=== PATIENT | male | born 1935 | race Caucasian/White ===

== ENCOUNTER 2016-08-21 11:39 | Inpatient (IN) | payer MEDICARE, SELFPAY ==
[2016-08-21] MEDS ORDERED: ACETAMINOPHEN TAB 325 MG TAB PO STA (12:02)
[2016-08-21] MEDS ORDERED: IBUPROFEN 600 MG TAB PO STA (12:02)
--- NOTE | 2016-08-21 12:21 | ED ---
Fever HPI - General Chief Complaint: Recheck/Abnormal Lab/Rx Stated Complaint: SHAKING ALL OVER, NOT ACTING NORMAL Time Seen by Provider: 08/21/16 11:51 Source: patient, family Mode of arrival: wheelchair Limitations: no limitations - History of Present Illness Initial Comments: This patient is an 80-year-old man who presents with complaint that he was feeling cold and shaking. The symptoms came on probably about 1-2 hours ago. He states that prior to that he had been feeling his usual self. The patient's is denying symptoms of infection other than a little bit of rhinorrhea. The patient denies sinus congestion or pressure, cough, sore throat. No headache or stiff neck. Patient is not having chest pain or dyspnea. No nausea, vomiting, diarrhea. No change in urination. No rash. MD Complaint: other (Chills) -: hour(s) Temperature Source: subjective Associated Symptoms: denies other symptoms, chills Treatments Prior to Arrival: none - Related Data Home Medications Medication Instructions Recorded Confirmed Allopurinol [Zyloprim] 100 mg PO QAM 08/21/16 08/21/16 Allopurinol [Zyloprim] 300 mg PO QAM 08/21/16 08/21/16 Aspirin 325 mg PO QAM 08/21/16 08/21/16 Atenolol 100 mg PO QAM 08/21/16 08/21/16 Atorvastatin [Lipitor] 10 mg PO QAM 08/21/16 08/21/16 Calcium Carbonate [Calcium] 600 mg PO TID 08/21/16 08/21/16 Cholecalciferol [Vitamin D3] 1,000 unit PO QAM 08/21/16 08/21/16 Colchicine [Colcrys] 0.6 mg PO Q1H PRN MDD 5 tablets 08/21/16 08/21/16 Hydrochlorothiazide 25 mg PO QAM 08/21/16 08/21/16 LORazepam [Ativan] 0.5 mg PO QAM 08/21/16 08/21/16 Losartan [Cozaar] 50 mg PO QAM 08/21/16 08/21/16 [place]-3 Fatty Acids/Fish Oil [Fish 2 cap PO QAM 08/21/16 08/21/16 Oil 1,000 mg Softgel] Prostate Blend By Solar[employer] (Otc) 1 tab PO BID 08/21/16 08/21/16 Prostate Health (Otc) 1 tab PO BID 08/21/16 08/21/16 Pyridoxine [Vitamin B-6] 100 mg PO QAM 08/21/16 08/21/16 Saw [place] 500 mg PO BID 08/21/16 08/21/16 Sulindac [[place]] 200 mg PO QAM 08/21/16 08/21/16 Vitamin B Complex 1 cap PO QAM 08/21/16 08/21/16 metFORMIN HCL [Glucophage] 500 mg PO BID 08/21/16 08/21/16 Allergies Allergy/AdvReac Type Severity Reaction Status Date / Time Iodinated Contrast Media - AdvReac Nausea Verified 08/21/16 13:45 Oral and Review of Systems ROS Statement: Those systems with pertinent positive or pertinent negative responses have been documented in the HPI. ROS Other: All systems not noted in ROS Statement are negative. Constitutional: Reports: chills ENT: Denies: ear pain, throat pain, congestion Respiratory: Denies: cough, dyspnea Cardiovascular: Denies: chest pain, palpitations, syncope Gastrointestinal: Denies: abdominal pain, vomiting, diarrhea Genitourinary: Denies: dysuria, hematuria Musculoskeletal: Denies: back pain Skin: Denies: rash Neurological: Denies: headache, weakness, numbness Past Medical History Past Medical History: CVA/TIA, Diabetes Mellitus, Hyperlipidemia, Hypertension History of Any Multi-Drug Resistant Organisms: None Reported Past Surgical History: Orthopedic Surgery Additional Past Surgical History / Comment(s): left knee Past Psychological History: No Psychological Hx Reported Smoking Status: Never smoker Past Alcohol Use History: None Reported Past Drug Use History: None Reported General Exam Limitations: no limitations General appearance: alert, in no apparent distress Head exam: Present: atraumatic, normocephalic Eye exam: Present: normal appearance. Absent: scleral icterus, conjunctival injection ENT exam: Present: normal oropharynx Neck exam: Present: normal inspection, full ROM. Absent: tenderness, meningismus Respiratory exam: Present: normal lung sounds bilaterally. Absent: respiratory distress, wheezes, rales, rhonchi, stridor Cardiovascular Exam: Present: normal rhythm, tachycardia, normal heart sounds. Absent: systolic murmur, diastolic murmur, rubs, gallop GI/Abdominal exam: Present: soft. Absent: distended, tenderness, guarding, rebound, mass Extremities exam: Present: normal inspection, normal capillary refill. Absent: pedal edema, calf tenderness Back exam: Present: normal inspection. Absent: CVA tenderness (R), CVA tenderness (L) Neurological exam: Present: alert, oriented X3 Skin exam: Present: warm, dry, intact, normal color. Absent: rash Course Vital Signs 08/21/16 08/21/16 08/21/16 11:40 12:18 13:56 Temperature 104.4 F H 103.3 F H 100.4 F H Pulse Rate 109 H 112 H 100 Respiratory 18 20 22 Rate Blood Pressure 136/70 96/63 89/57 O2 Sat by Pulse 97 95 97 Oximetry 08/21/16 14:26 Temperature Pulse Rate 96 Respiratory 22 Rate Blood Pressure 98/53 O2 Sat by Pulse 96 Oximetry Medical Decision Making - Medical Decision Making Patient is an 80-year-old man presenting with fever. There is no obvious source of infection and workup. The patient is having some hematuria and there is a urine culture pending. Case discussed with Dr. Riggins, covering for Dr. Puentes. He'll admit the patient with cultures pending and one dose of Levaquin. IV fluids for the hypotension which developed after the fever resolved - Lab Data Result diagrams: 08/21/16 12:07 08/21/16 12:07 Lab Results 08/21/16 08/21/16 08/21/16 Range/Units 12:07 12:07 12:07 WBC 18.8 H (3.8-10.6) k/uL RBC 4.42 (4.30-5.90) m/uL Hgb 14.2 (13.0-17.5) gm/dL Hct 40.4 (39.0-53.0) % MCV 91.5 (80.0-100.0) fL MCH 32.1 (25.0-35.0) pg MCHC 35.1 (31.0-37.0) g/dL RDW 14.5 (11.5-15.5) % Plt Count 181 (150-450) k/uL Neutrophils % 88 % Lymphocytes % 7 % Monocytes % 3 % Eosinophils % 1 % Basophils % 0 % Neutrophils # 16.5 H (1.3-7.7) k/uL Lymphocytes # 1.2 (1.0-4.8) k/uL Monocytes # 0.6 (0-1.0) k/uL Eosinophils # 0.3 (0-0.7) k/uL Basophils # 0.1 (0-0.2) k/uL Sodium 139 (137-145) mmol/L Potassium 3.9 (3.5-5.1) mmol/L Chloride 102 (98-107) mmol/L Carbon Dioxide 23 (22-30) mmol/L Anion Gap 14 mmol/L BUN 15 (9-20) mg/dL Creatinine 0.89 (0.66-1.25) mg/dL Est GFR (MDRD) Af Amer >60 (>60 ml/min/1.73 sqM) Est GFR (MDRD) Non-Af >60 (>60 ml/min/1.73 sqM) Glucose 152 H (74-99) mg/dL Plasma Lactic Acid Jasvir (0.7-2.0) mmol/L Calcium 9.4 (8.4-10.2) mg/dL Total Bilirubin 1.6 H (0.2-1.3) mg/dL AST 25 (17-59) U/L ALT 37 (21-72) U/L Alkaline Phosphatase 42 (38-126) U/L Total Protein 6.8 (6.3-8.2) g/dL Albumin 3.9 (3.5-5.0) g/dL Urine Color Urine Appearance (Clear) Urine pH (5.0-8.0) Ur Specific [place] (1.001-1.035) Urine Protein (Negative) Urine Glucose (UA) (Negative) Urine Ketones (Negative) Urine Blood (Negative) Urine Nitrate (Negative) Urine Bilirubin (Negative) Urine Urobilinogen (<2.0) mg/dL Ur Leukocyte Esterase (Negative) Urine RBC (0-5) /hpf Urine WBC (0-5) /hpf Ur Squamous Epith Cells (0-4) /hpf Urine Mucus (None) /hpf Influenza Type A RNA Not Detected (Not Detectd) Influenza Type B (PCR) Not Detected (Not Detectd) 08/21/16 08/21/16 Range/Units 12:09 13:59 WBC (3.8-10.6) k/uL RBC (4.30-5.90) m/uL Hgb (13.0-17.5) gm/dL Hct (39.0-53.0) % MCV (80.0-100.0) fL MCH (25.0-35.0) pg MCHC (31.0-37.0) g/dL RDW (11.5-15.5) % Plt Count (150-450) k/uL Neutrophils % % Lymphocytes % % Monocytes % % Eosinophils % % Basophils % % Neutrophils # (1.3-7.7) k/uL Lymphocytes # (1.0-4.8) k/uL Monocytes # (0-1.0) k/uL Eosinophils # (0-0.7) k/uL Basophils # (0-0.2) k/uL Sodium (137-145) mmol/L Potassium (3.5-5.1) mmol/L Chloride (98-107) mmol/L Carbon Dioxide (22-30) mmol/L Anion Gap mmol/L BUN (9-20) mg/dL Creatinine (0.66-1.25) mg/dL Est GFR (MDRD) Af Amer (>60 ml/min/1.73 sqM) Est GFR (MDRD) Non-Af (>60 ml/min/1.73 sqM) Glucose (74-99) mg/dL Plasma Lactic Acid Jasvir 1.9 (0.7-2.0) mmol/L Calcium (8.4-10.2) mg/dL Total Bilirubin (0.2-1.3) mg/dL AST (17-59) U/L ALT (21-72) U/L Alkaline Phosphatase (38-126) U/L Total Protein (6.3-8.2) g/dL Albumin (3.5-5.0) g/dL Urine Color Yellow Urine Appearance Clear (Clear) Urine pH 5.5 (5.0-8.0) Ur Specific [place] 1.014 (1.001-1.035) Urine Protein Trace H (Negative) Urine Glucose (UA) Negative (Negative) Urine Ketones Negative (Negative) Urine Blood Moderate H (Negative) Urine Nitrate Negative (Negative) Urine Bilirubin Negative (Negative) Urine Urobilinogen <2.0 (<2.0) mg/dL Ur Leukocyte Esterase Negative (Negative) Urine RBC 103 H (0-5) /hpf Urine WBC 2 (0-5) /hpf Ur Squamous Epith Cells <1 (0-4) /hpf Urine Mucus Rare H (None) /hpf Influenza Type A RNA (Not Detectd) Influenza Type B (PCR) (Not Detectd) Disposition Clinical Impression: Fever, Hypotension Disposition: ADMITTED IP TO THIS HOSP Condition: Fair Referrals: Izaiah Puentes MD [Primary Care Provider] - 1-2 days
[2016-08-21 12:22] LABS: Basophils # (A) 0.1 k/uL (0-0.2); Basophils % (A) 0 %; CH 32.7; CHCM 36.1; Eosinophils # (A) 0.3 k/uL (0-0.7); Eosinophils % (A) 1 %; HCT 40.4 % (39.0-53.0); HDW 3.31; HGB 14.2 gm/dL (13.0-17.5); Luc % (Auto) 1; Lymphocytes # (A) 1.2 k/uL (1.0-4.8); Lymphocytes % (A) 7 %; MCH 32.1 pg (25.0-35.0); MCHC 35.1 g/dL (31.0-37.0); MCV 91.5 fL (80.0-100.0); Mean Platelet Volume 7.6; Monocytes # (A) 0.6 k/uL (0-1.0); Monocytes % (A) 3 %; Neutrophils # (A) 16.5 k/uL (1.3-7.7); Neutrophils % (A) 88 %; RBC 4.42 m/uL (4.30-5.90); RDW 14.5 % (11.5-15.5); WBC 18.8 k/uL (3.8-10.6); WBC (Perox) 19.09
[2016-08-21 12:29] LABS: ALT 37 U/L (21-72); AST 25 U/L (17-59); Alkaline Phosphatase 42 U/L (38-126); Anion Gap 14 mmol/L; Blood Urea Nitrogen 15 mg/dL (9-20); Calcium 9.4 mg/dL (8.4-10.2); Carbon Dioxide 23 mmol/L (22-30); Chloride 102 mmol/L (98-107); Glucose 152 mg/dL (74-99); Non-African American GFR(MDRD) >60 (>60 ml/min/1.73 sqM); Potassium 3.9 mmol/L (3.5-5.1); Sodium 139 mmol/L (137-145); Total Bilirubin 1.6 mg/dL (0.2-1.3); Total Protein 6.8 g/dL (6.3-8.2)
[2016-08-21 13:22] LABS: Appearance,Urine Clear (Clear); Bilirubin,Urine Negative (Negative); Glucose,Urine (UA) Negative (Negative); Ketones,Urine Negative (Negative); Leukocyte Esterase,Urine Negative (Negative); Mucus,Urine Rare /hpf; Nitrite,Urine Negative (Negative); PH, Urine 5.5 (5.0-8.0); Particle Count 1261; Protein,Urine Trace (Negative); RBC,Urine 103 /hpf (0-5); Specific Gravity,Urine 1.014 (1.001-1.035); Squamous Epithelial Cell,Urine <1 /hpf (0-4); UA Billing (MACRO vs. MICRO) MICRO; Urobilinogen,Urine <2.0 mg/dL (<2.0); WBC,Urine 2 /hpf (0-5)
[2016-08-21] MEDS ORDERED: SODIUM CHLORIDE 0.9% 1,000 ML IV ONE (14:04)
[2016-08-21] MEDS ORDERED: LEVOFLOXACIN 750MG-D5W PMX 750 MG in DEXTROSE/WATER 1 150ML.BAG IVPB STA (14:08)
[2016-08-21] MEDS ORDERED: ACETAMINOPHEN TAB 325 MG TAB PO PRN (14:25)
[2016-08-21] MEDS ORDERED: NALOXONE 0.4 MG/ML 1 ML VIAL IV PRN (14:25)
[2016-08-21] MEDS: SODIUM CHLORIDE 0.9% 1,000 ML IV SCH ×2 (14:28→21:33)
--- NOTE | 2016-08-21 14:40 | XR ---
EXAMINATION TYPE: XR chest 2V DATE OF EXAM: 08/21/2016 12:30 PM COMPARISON: NONE HISTORY: Fever TECHNIQUE: Frontal and lateral views of the chest are obtained. FINDINGS: There is no focal air space opacity, pleural effusion, or pneumothorax seen. The cardiac silhouette size is within normal limits. There is increased AP diameter of the chest. Aorta is dense . The osseous structures are intact. IMPRESSION: No acute cardiopulmonary process.
[2016-08-21 17:32] LABS: Glucose,Whole Blood 118 mg/dL (75-99)
[2016-08-21 19:40] VITALS: BMI 29.2
[2016-08-21 20:18] LABS: Glucose,Whole Blood 137 mg/dL (75-99)
[2016-08-21] MEDS: CALCIUM CARBONATE 500 MG CHEWABLE PO SCH ×2 (21:31)
[2016-08-21] MEDS: metFORMIN 500 MG TAB PO SCH (21:31)
[2016-08-21] MEDS: FAMOTIDINE 20 MG TAB PO SCH (21:31)
--- NOTE | 2016-08-21 22:52 | HP ---
DATE OF ADMISSION: 08/21/2016 Mr. Jha is an 80-year-old male with known history of hypertension, diabetes mellitus, [id number], hyperlipidemia, and gout, came to the hospital with complaints of feeling very cold and shaky. Patient does have this chills, shaking since morning about 1 to 2 hours prior to admission to the hospital and has not been feeling as his usual self. Otherwise, the patient denies any complaints of chest pain. No short of breath and the patient does have runny nose, but not currently. Denies any sinus congestion. No sick contacts at home. Patient did have a loose bowel movement prior to this episode of shaking. Otherwise, patient denied any complaints of headache, dizziness or lightheadedness. No neck stiffness. No altered mental status. No leg swelling. Denied any recent illnesses. Chest x-ray showed no acute ( ) process and UA is not suggestive of infection. Urine culture and blood cultures are pending at this time. Otherwise, patient denied any complaints now. REVIEW OF SYSTEMS: CONSTITUTIONAL: Patient does have fever and chills and malaise. No weakness. CARDIOVASCULAR: No chest pain or shortness of breath. RESPIRATORY: No cough or sputum production. No short of breath. Abdomen: No nausea or vomiting. Patient did have one episode of diarrhea prior to shaking. [employer]EL[employer]: No headache or dizziness or lightheadedness. No numbness or tingling. GENITOURINARY: Negative. No dysuria. No hematuria. ENDOCRINE: Negative. PSYCHIATRIC: Negative. SKIN: Negative. MUSCULOSKELETAL: Negative. All other fourteen-point review of systems negative except as above. Past medical history includes history of cerebrovascular accident/transient ischemic attack, no residual weakness diabetes mellitus type II, [id number], gouty arthritis and hyperlipidemia, hypertension, osteoarthritis of multiple joints. PAST SURGICAL HISTORY: Left knee total arthroplasty. SOCIAL HISTORY: Patient never a smoker. Denied any alcohol use. Denied any drugs or IVDU. FAMILY HISTORY: Denied any history of hypertension or diabetes mellitus in the family. ALLERGIES: IODINATED CONTRAST MEDIA. Home medication include: 1. Zyloprim. 2. Aspirin. 3. Atenolol. 4. Lipitor. 5. Calcium carbonate. 6. Vitamin D3. 7. Colchicine. 8. Hydrochlorothiazide. 9. Losartan. 10. [place]-3 fatty acids. 11. Prostate blend by ( ). 12. Prostate health. 13. ( ), 14. Saw [place]. 15. Sulindac. 16. Vitamin B complex. 17. Metformin. PHYSICAL EXAMINATION: A 80-year-old male lying in the bed. Awake, alert, oriented, x3 appears to be in no distress. VITALS: Blood pressure is 136/70. Pulse is 109, respirations 18, temperature 104.4, pulse ox 97% on room air. HEENT: Atraumatic, normocephalic. Neck is supple. No JVD. CVS: S1, S2 heard. No murmurs, no gallop. LUNGS: Bilateral air entry is present. No wheezing. No crackles. Nonlabored breathing. ABDOMEN: Soft, nontender. Bowel sounds are present. [employer]EL[employer]: Awake, alert, oriented, x3. No focal neurologic deficits. Cranial nerves grossly intact. EXTREMITIES: No edema. Pulses palpable bilaterally. Musculoskeletal: Patient does have left knee ( ) is present. Left knee pain which is chronic. No acute issues. No tenderness. No joint swelling. PSYCHIATRIC: Cooperative. LABORATORY DATA: WBC 18.8, hemoglobin 14.2, platelets 181. Neutrophils 16.5, ( ) 16.5, blood sugar is 152, total bilirubin is 1.6. Lactic acid 1.9, liver enzymes is within normal limits. UA showed trace protein, moderate blood, and WBC 2 and less than ( ), influenza A and B PCR not detected. CHEST X-RAY: No acute cardiopulmonary process. Blood culture, urine culture are pending at this time. IMPRESSION: 1. Systemic inflammatory response syndrome with no definite evidence of infection. 2. Possible acute viral illness. 3. Significant Leukocytosis high temperature and tachycardic on admission. 4. Hypertension. Blood pressure is controlled. 5. Diabetes type 2, [id number]. 6. Hyperlipidemia. 7. Gouty arthritis, no signs of flare. 8. Degenerative joint disease. 9. Chronic left knee pain. DISCUSSION AND PLAN: Patient will be continued on IV fluids. Patient was given a dose of levofloxacin in the ER and we will follow up on the urine culture and blood cultures and repeat labs in a.m. Currently the patient denied any complaints of fever now. Tachycardia improved now. Will continue with IV fluids. No definite source of infection has been noted so far. Will continue to follow closely. Further recommendations based on the clinical course. MTDD
[2016-08-22 06:35] LABS: Basophils % (A) 0 %; CH 32.3; CHCM 34.6; Eosinophils # (A) 0.1 k/uL (0-0.7); Eosinophils % (A) 1 %; HCT 35.1 % (39.0-53.0); HDW 3.22; HGB 11.9 gm/dL (13.0-17.5); Luc # (Auto) 0.14; Luc % (Auto) 1; Lymphocytes # (A) 1.1 k/uL (1.0-4.8); Lymphocytes % (A) 8 %; MCH 31.9 pg (25.0-35.0); MCV 93.9 fL (80.0-100.0); Mean Platelet Volume 7.1; Monocytes # (A) 0.4 k/uL (0-1.0); Monocytes % (A) 3 %; Neutrophils # (A) 11.7 k/uL (1.3-7.7); Neutrophils % (A) 87 %; RBC 3.74 m/uL (4.30-5.90); RDW 14.7 % (11.5-15.5); WBC 13.5 k/uL (3.8-10.6)
[2016-08-22 06:46] LABS: Glucose,Whole Blood 114 mg/dL (75-99)
[2016-08-22 06:47] LABS: Anion Gap 8 mmol/L; Blood Urea Nitrogen 14 mg/dL (9-20); Carbon Dioxide 24 mmol/L (22-30); Chloride 106 mmol/L (98-107); Glucose 113 mg/dL (74-99); Non-African American GFR(MDRD) >60 (>60 ml/min/1.73 sqM); Potassium 3.7 mmol/L (3.5-5.1); Sodium 138 mmol/L (137-145)
[2016-08-22] MEDS ORDERED: IV VANCOMYCIN PER PHARMACY 1 EACH MISC MISCELLANE PRN (07:05)
[2016-08-22 08:17] LABS: Hemoglobin A1C 6.2 % (4.2-6.1)
[2016-08-22] MEDS: VANCOMYCIN 1,500 MG in SODIUM CHLORIDE 0.9% 250 ML IVPB SCH (08:17)
[2016-08-22] MEDS: metFORMIN 500 MG TAB PO SCH ×2 (08:17→17:18)
[2016-08-22] MEDS: FAMOTIDINE 20 MG TAB PO SCH ×2 (08:17→21:06)
[2016-08-22] MEDS: CALCIUM CARBONATE 500 MG CHEWABLE PO SCH ×3 (08:17→21:06)
[2016-08-22] MEDS ORDERED: HYDROCHLOROTHIAZIDE 25 MG TAB PO SCH (09:00)
[2016-08-22] MEDS ORDERED: NON-FORMULARY DRUG (Omega-3 Fatty Acids/Fish Oil [Fish Oil 1,000 Mg Softgel] 2 CAP) PO SCH (09:00)
[2016-08-22] MEDS: PYRIDOXINE 50 MG TAB PO SCH (10:02)
[2016-08-22] MEDS: LORazepam 0.5 MG TAB PO SCH (10:02)
[2016-08-22] MEDS: B COMPLEX-VIT C-VIT E-ZINC 1 EACH TAB PO SCH (10:03)
[2016-08-22] MEDS: CHOLECALCIFEROL 1,000 UNIT TAB PO SCH (10:03)
[2016-08-22] MEDS: ATORVASTATIN 10 MG TAB PO SCH (10:03)
[2016-08-22] MEDS: ALLOPURINOL 300 MG TAB PO SCH (10:03)
[2016-08-22] MEDS: ASPIRIN 325 MG TAB PO SCH (10:03)
[2016-08-22] MEDS: ALLOPURINOL 100 MG TAB PO SCH (10:56)
[2016-08-22 11:49] LABS: Glucose,Whole Blood 130 mg/dL (75-99)
[2016-08-22] MEDS: SODIUM CHLORIDE 0.9% 1,000 ML IV SCH ×2 (15:18→18:10)
[2016-08-22 16:18] LABS: Appearance,Urine Clear (Clear); Bilirubin,Urine Negative (Negative); Glucose,Urine (UA) Negative (Negative); Ketones,Urine Negative (Negative); Leukocyte Esterase,Urine Negative (Negative); Nitrite,Urine Negative (Negative); Particle Count 580; Protein,Urine Negative (Negative); RBC,Urine 86 /hpf (0-5); Specific Gravity,Urine 1.012 (1.001-1.035); UA Billing (MACRO vs. MICRO) MICRO; Urobilinogen,Urine <2.0 mg/dL (<2.0); WBC,Urine 2 /hpf (0-5)
[2016-08-22 17:03] LABS: Glucose,Whole Blood 133 mg/dL (75-99)
[2016-08-22] MEDS: LOSARTAN 50 MG TAB PO SCH (17:19)
[2016-08-22] MEDS: ATENOLOL 50 MG TAB PO SCH (17:19)
--- NOTE | 2016-08-22 17:32 | CONS ---
DATE OF CONSULTATION: 08/22/2016 Reason for consultation is bacteremia. HISTORY OF PRESENT ILLNESS: The patient is an 80-year-old male was brought into the [facility] with history of chief complaints of rigors and chills. Patient said that yesterday morning when he woke up he was doing fine, around about 10:30 when he was in the bed he started having some sudden rigors and chills. The patient said he went back to his place and lied down and had uncontrollable shaking and chills. The patient denies any significant headache or URI symptoms. Patient denies having any chest pain or shortness of breath or cough. No abdominal pain. He had about 3 loose stools prior to this episode of shaking, some difficulty in urination but no burning or frequency. Patient does have history of left knee replacement about 20 years ago and the need to be replaced; however, because of comorbidity has been off; however, the patient denies having any worsening pain in left knee area and it is not swollen or red. Patient denies having any joint swelling other than the knee and no redness. Patient did have a dental cleaning about 2 weeks ago which he gets routinely every 6 months. Does not take any antibiotics prior to be these clinical procedure and currently no symptoms referable to his oral cavity. REVIEW OF SYSTEMS: CONSTITUTIONAL: Positive for weakness along with the rigors and chills. EYES: No complaint. END: No complaint. RESPIRATORY: No complaint. CARDIOVASCULAR: No complaint. GENITOURINARY: As per HPI. GASTROINTESTINAL: As per HPI. MUSCULOSKELETAL: No complaint. INTEGUMENTARY: No complaint. PSYCHOLOGICAL: No complaint. ENDOCRINE: No complaint. NEUROLOGIC: No complaint. PAST MEDICAL HISTORY: Hypertension, hyperlipidemia, diabetes mellitus, CVA, TIA, arthritis. PAST SURGICAL HISTORY: Left knee replacement. SOCIAL HISTORY: No history of smoking, denied any drug use. , lives with his . FAMILY HISTORY: No pertinent findings. Allergies to IODINATED CONTRAST DYE. Medications include the patient is currently on Tylenol, Zyloprim, aspirin, Tenormin, Lipitor, TUMS and vitamin E, Pepcid, Ativan, Cozaar, Glucophage, Narcan, vitamin D6, vancomycin 1500 q.16 hours. On examination, the blood pressure is 110/65 with a pulse of 76, temperature of 98.2 with a T-max 103.3. General description is an elderly male, lying in bed in no distress. No tachypnea or accessory muscle of respiration use. HEENT examination shows no pallor. No scleral icterus. Oral mucous membrane is dry. NECK: Trachea central. There is no thyromegaly. The lungs unlabored breathing. Clear to auscultation anteriorly. No wheeze or crackle. HEART: S1, S2, regular rate and rhythm. Abdomen is soft, no tenderness. No guarding or rigidity. EXTREMITIES: No edema of the feet. Examination of the left knee, no swelling or redness was noticed, no evidence of any cellulitis. Examination of the oral cavity, no bad dentition was noticed or any evidence of gingivitis. NEUROLOGICAL: The patient is awake, alert, oriented x3. Mood and affect is normal. LABS: Hemoglobin is 11.9, white count of 13.4. Admission white count was 18.8 with a BUN of 14, creatinine 0.96. Electrolytes have been normal. Urine did show some evidence of hematuria but no significant pyuria. Influenza PCR has been negative. DIAGNOSTIC IMPRESSION AND PLAN: Patient with gram-positive bacteremia in a patient with no clear focus of infection. However, the patient did have recent dental work up, though no loud murmur was noticed that could be one of the etiologies. The patient also noticed to have some hematuria with a question of possible urinary stone However, patient did not have significant urinary symptoms. Patient did have a chronic problem with his left knee but no evidence of any cellulitis was noticed. PLAN: 1. We will repeat blood cultures x2 to make sure no evidence of any persistent bacteremia. 2. Repeat the UA and the culture. If evidence of any persistent hematuria will be obtaining a CT of abdomen and pelvis. 3. Vancomycin, pharmacy to dose with a target trough of 15. 4. Will follow up on the clinical condition and cultures to further adjust the medication if needed. Thank you for this consultation. Will follow this patient along with you. FIGUEROA
[2016-08-22 21:51] LABS: Glucose,Whole Blood 122 mg/dL (75-99)
[2016-08-23] MEDS: VANCOMYCIN 1,500 MG in SODIUM CHLORIDE 0.9% 250 ML IVPB SCH (00:02)
[2016-08-23] MEDS: SODIUM CHLORIDE 0.9% 1,000 ML IV SCH ×3 (00:03→15:22)
[2016-08-23 07:10] LABS: Glucose,Whole Blood 115 mg/dL (75-99)
[2016-08-23] MEDS: ALLOPURINOL 100 MG TAB PO SCH (07:45)
[2016-08-23] MEDS: ALLOPURINOL 300 MG TAB PO SCH (07:45)
[2016-08-23] MEDS: metFORMIN 500 MG TAB PO SCH ×2 (07:45→17:13)
[2016-08-23] MEDS: ASPIRIN 325 MG TAB PO SCH (07:45)
[2016-08-23] MEDS: ATENOLOL 50 MG TAB PO SCH (07:46)
[2016-08-23] MEDS: ATORVASTATIN 10 MG TAB PO SCH (07:46)
[2016-08-23] MEDS: CALCIUM CARBONATE 500 MG CHEWABLE PO SCH ×3 (07:46→21:02)
[2016-08-23] MEDS: B COMPLEX-VIT C-VIT E-ZINC 1 EACH TAB PO SCH (07:46)
[2016-08-23] MEDS: PYRIDOXINE 50 MG TAB PO SCH (07:47)
[2016-08-23] MEDS: LOSARTAN 50 MG TAB PO SCH (07:47)
[2016-08-23] MEDS: FAMOTIDINE 20 MG TAB PO SCH ×2 (07:47→21:02)
[2016-08-23] MEDS: LORazepam 0.5 MG TAB PO SCH (07:49)
[2016-08-23] MEDS: ceFAZolin 2 GM in SODIUM CHLORIDE 0.9% 100 ML IVPB SCH ×2 (10:26→17:13)
--- NOTE | 2016-08-23 12:02 | PN ---
DATE OF SERVICE: 08/22/2016 Mr. Jha is an 80-year-old male with known history of hypertension, rey-qmswzvr-mlmehurhs diabetes mellitus and hyperlipidemia and history of gout, came to the hospital with complaints of shakiness and chills. Patient was found to have leukocytosis and fever on admission. Febrile illness, fever has been resolved now but otherwise, patient leukocytosis is also improving. Blood cultures grew gram positive cocci and vancomycin has been started. Otherwise currently patient is symptomatically much improved today. No complaints of chest pain. No headache or dizziness. No tiredness or weakness. Repeat blood cultures have been ordered. If the blood cultures are persistently positive, we will get 2-D echo as well. Otherwise, the patient denied any complaints of dysuria or hematuria now. REVIEW OF SYSTEMS: CONSTITUTIONAL: No fever. No chills. RESPIRATORY: No cough or sputum production. CARDIOVASCULAR: No chest pain or short of breath. ABDOMEN: No nausea or vomiting, abdominal pain. GENITOURINARY: Negative. ENDOCRINE: Negative. PSYCHIATRIC: Negative. SKIN: Negative. All other 14 point review of systems are negative except as above. CURRENT MEDICATIONS: Reviewed. Include: 1. Tylenol. 2. Zyloprim. 3. Aspirin. 4. Tenormin. 5. Lipitor. 6. TUMS. 7. Vitamin D3. 8. Pepcid. 9. Ativan. 10. Cozaar. 11. Narcan. 12. Vitamin B6. 13. Vancomycin. 14. Vitamin B complex. PHYSICAL EXAMINATION: An 80-year-old male lying in bed comfortably, awake, alert, oriented, x3, appears to be in no apparent distress. VITALS: Blood pressure is 110/65, pulse is a 76, respirations 16, temp afebrile. Pulse ox 93% on room air. HEENT: Atraumatic, normocephalic. Neck is supple. No JVD. CVS: S1, S2 heard. No murmurs, no gallop, no rub. LUNGS: Bilateral air entry is present. No wheezing. No crackles. ABDOMEN: Soft, nontender, bowel sounds present. CENTRAL NERVOUS SYSTEM: Awake, alert and oriented times three. No focal deficits. EXTREMITIES: No edema. Pulses palpable bilaterally. No clubbing or cyanosis. PSYCHIATRIC: Cooperative. LABORATORY DATA: WBC 13.5, hemoglobin 11.9, platelets 126, sodium 138, potassium 3.7, chloride 106, bicarb is 24, BUN 14, creatinine 0.96, calcium 8.0, HbA1C 6.2. IMPRESSION: 1. Gram-positive cocci bacteremia. 2. Systemic inflammatory response syndrome/sepsis secondary to above. 3. Microscopic hematuria. 4. Leukocytosis and fever, improving, leukocytosis improved and fever has resolved. 5. Diabetes mellitus type 2. HbA1C 6.2. 6. Hypertension. 7. Hyperlipidemia. 8. History of gout. 9. Degenerative joint disease. 10. Chronic left knee pain. DISCUSSION AND PLAN: Patient will be continued on IV hydration and also repeat blood cultures were ordered. Will consult infectious disease for further evaluation and follow up on the final culture report. The patient will be started on vancomycin IV. Further recommendations based on clinical course. Prognosis guarded.
[2016-08-23 12:25] LABS: Glucose,Whole Blood 98 mg/dL (75-99)
[2016-08-23] MEDS: CLINDAMYCIN 600 MG in DEXTROSE 5% IN WATER 50 ML IVPB SCH ×4 (15:23→23:29)
[2016-08-23 16:49] LABS: Glucose,Whole Blood 101 mg/dL (75-99)
[2016-08-23 20:29] LABS: Glucose,Whole Blood 110 mg/dL (75-99)
[2016-08-24] MEDS: ceFAZolin 2 GM in SODIUM CHLORIDE 0.9% 100 ML IVPB SCH ×3 (01:51→17:13)
[2016-08-24] MEDS: SODIUM CHLORIDE 0.9% 1,000 ML IV SCH ×2 (03:21→13:18)
[2016-08-24 06:52] LABS: Glucose,Whole Blood 120 mg/dL (75-99)
[2016-08-24] MEDS: CLINDAMYCIN 600 MG in DEXTROSE 5% IN WATER 50 ML IVPB SCH ×2 (08:08)
[2016-08-24] MEDS: B COMPLEX-VIT C-VIT E-ZINC 1 EACH TAB PO SCH (08:09)
[2016-08-24] MEDS: ATENOLOL 50 MG TAB PO SCH (08:09)
[2016-08-24] MEDS: ATORVASTATIN 10 MG TAB PO SCH (08:09)
[2016-08-24] MEDS: metFORMIN 500 MG TAB PO SCH ×2 (08:09→17:13)
[2016-08-24] MEDS: ASPIRIN 325 MG TAB PO SCH (08:09)
[2016-08-24] MEDS: ALLOPURINOL 100 MG TAB PO SCH (08:09)
[2016-08-24] MEDS: CALCIUM CARBONATE 500 MG CHEWABLE PO SCH ×3 (08:10→20:58)
[2016-08-24] MEDS: LOSARTAN 50 MG TAB PO SCH (08:10)
[2016-08-24] MEDS: CHOLECALCIFEROL 1,000 UNIT TAB PO SCH (08:10)
[2016-08-24] MEDS: PYRIDOXINE 50 MG TAB PO SCH (08:10)
[2016-08-24] MEDS: FAMOTIDINE 20 MG TAB PO SCH ×2 (08:10→20:58)
[2016-08-24] MEDS: LORazepam 0.5 MG TAB PO SCH (08:18)
[2016-08-24 08:49] LABS: Basophils # (A) 0.1 k/uL (0-0.2); Basophils % (A) 1 %; CH 32.1; CHCM 34.6; Eosinophils # (A) 0.4 k/uL (0-0.7); Eosinophils % (A) 5 %; HCT 37.3 % (39.0-53.0); HDW 3.35; HGB 12.4 gm/dL (13.0-17.5); Luc # (Auto) 0.19; Luc % (Auto) 3; Lymphocytes # (A) 1.7 k/uL (1.0-4.8); Lymphocytes % (A) 23 %; MCH 31.1 pg (25.0-35.0); MCHC 33.3 g/dL (31.0-37.0); MCV 93.6 fL (80.0-100.0); Mean Platelet Volume 6.9; Monocytes # (A) 0.3 k/uL (0-1.0); Monocytes % (A) 4 %; Neutrophils # (A) 4.8 k/uL (1.3-7.7); Neutrophils % (A) 65 %; RBC 3.99 m/uL (4.30-5.90); RDW 14.5 % (11.5-15.5); WBC 7.4 k/uL (3.8-10.6); WBC (Perox) 8.12
[2016-08-24 09:35] LABS: Anion Gap 11 mmol/L; Blood Urea Nitrogen 15 mg/dL (9-20); Calcium 8.5 mg/dL (8.4-10.2); Carbon Dioxide 22 mmol/L (22-30); Chloride 108 mmol/L (98-107); Glucose 132 mg/dL (74-99); Non-African American GFR(MDRD) >60 (>60 ml/min/1.73 sqM); Potassium 3.9 mmol/L (3.5-5.1); Sodium 141 mmol/L (137-145)
--- NOTE | 2016-08-24 09:50 | PN ---
DATE OF SERVICE: 08/23/2016 Reason for follow up is left lower extremity cellulitis and strep bacteremia. INTERVAL HISTORY: The patient overall fever pattern has improved. He has been breathing comfortably. Denies significant chest pain, shortness of breath. No cough or abdominal pain. No pain in the left knee area, but did have some swelling and redness in the left lower leg. On examination, blood pressure is 114/57, pulse of 68, temperature 97. He is 97% on room air. General description is an elderly male, lying in bed in no distress. RESPIRATORY SYSTEM: Unlabored breathing. Clear to auscultation anteriorly. HEART: S1, S2 with regular rate and rhythm. ABDOMEN: Soft, no tenderness. Left leg with swelling and redness, slightly warm to touch. Knee seems to be normal with no swelling or redness. LABS: No new labs have been obtained today. Blood culture with group B streptococcus. DIAGNOSTIC IMPRESSION AND PLAN: Patient with Streptococcus agalactiae bacteremia, source likely left lower extremity cellulitis. Antibiotics has been adjusted to cefazolin and Clinda. Will evaluate the patient tomorrow. Continue supportive care. [facility]
[2016-08-24] MEDS: ALLOPURINOL 300 MG TAB PO SCH (10:24)
--- NOTE | 2016-08-24 11:18 | P.PN ---
Subjective Patient sitting at side of bed states some improvement continues with some weakness. Noted mild erythema to left lower leg Objective - Vital Signs Vital signs: Vital Signs Temp 97.0 F L 08/24/16 07:00 Pulse 62 08/24/16 07:00 Resp 18 08/24/16 07:00 BP 120/78 08/24/16 07:00 Pulse Ox 97 08/24/16 07:00 Intake & Output 08/23/16 08/24/16 08/24/16 18:59 06:59 18:59 Other: Voiding Method Toilet # Voids 2 2 - Constitutional General appearance: Present: obese - EENT Eyes: Present: PERRLA Ears: bilateral: normal - Neck Neck: Present: normal ROM - Respiratory Respiratory: bilateral: CTA - Cardiovascular Rhythm: regular - Gastrointestinal General gastrointestinal: Present: soft - Integumentary Integumentary Comment(s): Mild erythema left lower extremity Integumentary: Present: normal - Neurologic Neurologic: Present: CNII-XII intact - Musculoskeletal Musculoskeletal: Present: generalized weakness - Psychiatric Psychiatric: Present: A&O x's 3, appropriate affect, intact judgment & insight - Labs CBC & Chem 7: 08/24/16 08:03 08/24/16 08:03 Labs: Abnormal Lab Results - Last 24 Hours (Table) 08/23/16 08/23/16 08/24/16 Range/Units 16:47 20:27 06:50 RBC (4.30-5.90) m/uL Hgb (13.0-17.5) gm/dL Hct (39.0-53.0) % Plt Count (150-450) k/uL Chloride (98-107) mmol/L Glucose (74-99) mg/dL POC Glucose (mg/dL) 101 H 110 H 120 H (75-99) mg/dL 08/24/16 08/24/16 Range/Units 08:03 08:03 RBC 3.99 L (4.30-5.90) m/uL Hgb 12.4 L (13.0-17.5) gm/dL Hct 37.3 L (39.0-53.0) % Plt Count 147 L (150-450) k/uL Chloride 108 H (98-107) mmol/L Glucose 132 H (74-99) mg/dL POC Glucose (mg/dL) (75-99) mg/dL Microbiology - Last 24 Hours (Table) 08/22/16 15:45 Urine Culture - Final Urine,Voided 08/22/16 16:29 Blood Culture - Preliminary Blood No Growth after 24 hours 08/22/16 15:33 Blood Culture - Preliminary Blood No Growth after 24 hours - Imaging and Cardiology Chest x-ray: report reviewed Assessment and Plan Plan: Assessment Strep bacteremia left lower leg cellulitis Systemic inflammatory response syndrome sepsis secondary to above Hematuria Leukocytosis improving Diabetes type 2 hemoglobin A1c 6.2 Hypertension Hyperlipidemia History of gout Chronic elevated PSA Degenerative joint disease Plan Continue with antibiotics and continue consultation with with infectious disease
--- NOTE | 2016-08-24 11:33 | PN ---
DATE OF SERVICE: 08/23/2016 INTERVAL HISTORY: Mr. Jha is an 80-year-old male with known history of hypertension, wta-wxacbsu-yproihczz diabetes mellitus and hyperlipidemia and gout, came to the hospital with complaints of shakiness and chills and fever with leukocytosis. The patient was initially found to have streptococcal agalactiae bacteremia on the initial cultures. Repeat cultures are pending at this time. Patient also having microscopic hematuria, which is improving now. The patient denies any complaints today. Fever has improved. Patient also having redness of the skin on the left sher area and is being treated with antibiotics in the form of Clindamycin and cephazolin. ID is following this patient. Otherwise, no acute overnight issues. REVIEW OF SYSTEMS: CONSTITUTIONAL: No fever, no chills. RESPIRATORY: No cough or sputum production. CARDIOVASCULAR: No chest pain, short of breath. ABDOMEN: No nausea, vomiting, abdominal pain. GENITOURINARY: Negative. ENDOCRINE: Negative. PSYCHIATRIC: Negative. SKIN: Negative. MUSCULOSKELETAL: Negative except left knee pain, chronic. All other fourteen point review of systems negative except as above. CURRENT MEDICATIONS: Reviewed. PHYSICAL EXAMINATION: An 80-year-old male lying in bed comfortably, awake, alert, oriented x3, appears to be in no apparent distress. VITALS: Blood pressure is 129/73, pulse is 71, respirations 16, temperature afebrile, pulse ox 96% on room air. HEENT: Atraumatic, normocephalic. Neck is supple. No JVD. CVS: S1, S2 heard. No murmurs, no gallop. LUNGS: Bilateral air entry is present. No wheezing. No crackles. Nonlabored breathing. ABDOMEN: Soft, nontender. Bowel sounds present. BASKET MAKER: Awake, alert, alert, oriented x3. No focal deficit. EXTREMITIES: No edema. Pulses palpable bilaterally. No clubbing or cyanosis. PSYCHIATRIC: Cooperative. SKIN: Patient does have dry skin in the bilateral lower extremities and skin erythema on left sher area with mild warmth. Laboratory data reviewed. IMPRESSION: 1. Streptococcus agalactiae bacteremia. 2. Sepsis secondary to streptococcal agalactiae bacteremia. 3. Left lower extremity cellulitis, mild. 4. Microscopic hematuria. 5. Leukocytosis, improving now. 6. Diabetes mellitus type 2. HbA1c 6.2. 7. Hypertension. 8. Hyperlipidemia. 9. History of gout. 10. Degenerative joint disease. 11. Chronic left knee pain. DISCUSSION AND PLAN: Patient will be continued on antibiotics in the form of cephazolin and clindamycin as per ID recommendations. Follow up on repeat cultures. Leukocytosis is trending down. Will check labs tomorrow morning and further recommendations based on clinical source. ID is following this patient.
[2016-08-24] MEDS: HYDROCHLOROTHIAZIDE 25 MG TAB PO SCH (14:11)
--- NOTE | 2016-08-24 14:42 | PN ---
DATE OF SERVICE: 08/24/2016 Reason for followup is Streptococcus agalactiae bacteremia and left lower extremity cellulitis. INTERVAL HISTORY: The patient is afebrile. His left leg swelling and redness has slightly improved. Denies having any significant pain. Patient denies having any chest pain or shortness of breath or cough. No abdominal pain and any diarrhea. On examination, blood pressure 120/78 with a pulse of 62, temperature if 97. He is 97% on room air. General description is an elderly male, lying in bed in no distress. RESPIRATORY SYSTEM: Unlabored breathing. Clear to auscultation anteriorly. HEART: S1, S2, regular and rhythm. ABDOMEN: Soft, no tenderness. EXTREMITIES: Left leg swelling and redness have improved. DIAGNOSTIC IMPRESSION AND PLAN: Patient with left lower extremity cellulitis with Streptococcus agalactiae bacteremia, as the organism is resistant to clindamycin, I will discontinue the clindamycin. Continue the patient on cefazolin. Will keep him on IV antibiotics for another 24 hours and evaluate the patient tomorrow. The patient has overall clinical improvement. Finish therapy with oral antibiotics. Continue supportive care.
[2016-08-24 16:50] LABS: Glucose,Whole Blood 126 mg/dL (75-99)
[2016-08-24 21:34] LABS: Glucose,Whole Blood 107 mg/dL (75-99)
[2016-08-25] MEDS: ceFAZolin 2 GM in SODIUM CHLORIDE 0.9% 100 ML IVPB SCH ×3 (01:09→18:09)
[2016-08-25] MEDS: SODIUM CHLORIDE 0.9% 1,000 ML IV SCH ×2 (04:24→20:53)
[2016-08-25 07:19] LABS: Glucose,Whole Blood 106 mg/dL (75-99)
[2016-08-25] MEDS: metFORMIN 500 MG TAB PO SCH ×2 (08:02→17:38)
[2016-08-25] MEDS: ATORVASTATIN 10 MG TAB PO SCH (08:03)
[2016-08-25] MEDS: ASPIRIN 325 MG TAB PO SCH (08:03)
[2016-08-25] MEDS: ALLOPURINOL 100 MG TAB PO SCH (08:03)
[2016-08-25] MEDS: ALLOPURINOL 300 MG TAB PO SCH (08:03)
[2016-08-25] MEDS: B COMPLEX-VIT C-VIT E-ZINC 1 EACH TAB PO SCH (08:03)
[2016-08-25] MEDS: CHOLECALCIFEROL 1,000 UNIT TAB PO SCH (08:03)
[2016-08-25] MEDS: CALCIUM CARBONATE 500 MG CHEWABLE PO SCH ×3 (08:03→20:41)
[2016-08-25] MEDS: PYRIDOXINE 50 MG TAB PO SCH (08:04)
[2016-08-25] MEDS: LORazepam 0.5 MG TAB PO SCH (08:04)
[2016-08-25] MEDS: FAMOTIDINE 20 MG TAB PO SCH ×2 (08:04→20:41)
[2016-08-25] MEDS: HYDROCHLOROTHIAZIDE 25 MG TAB PO SCH (08:04)
[2016-08-25 08:35] LABS: Basophils # (A) 0.1 k/uL (0-0.2); Basophils % (A) 1 %; CH 32.6; Eosinophils # (A) 0.3 k/uL (0-0.7); Eosinophils % (A) 5 %; HDW 3.36; HGB 12.4 gm/dL (13.0-17.5); Luc # (Auto) 0.14; Luc % (Auto) 2; Lymphocytes # (A) 1.6 k/uL (1.0-4.8); Lymphocytes % (A) 24 %; MCH 31.4 pg (25.0-35.0); MCHC 33.5 g/dL (31.0-37.0); MCV 93.6 fL (80.0-100.0); Mean Platelet Volume 7.5; Monocytes # (A) 0.3 k/uL (0-1.0); Monocytes % (A) 4 %; Neutrophils # (A) 4.2 k/uL (1.3-7.7); Neutrophils % (A) 63 %; RBC 3.95 m/uL (4.30-5.90); RDW 14.4 % (11.5-15.5); WBC 6.7 k/uL (3.8-10.6); WBC (Perox) 7.27
--- NOTE | 2016-08-25 09:36 | P.PN ---
Subjective Principal diagnosis: Patient ambulating freely in room. States he feels improved that he is feeling stronger. Improvement noted to cellulitis left lower leg Objective - Vital Signs Vital signs: Vital Signs Temp 97.5 F L 08/25/16 07:00 Pulse 64 08/25/16 07:00 Resp 18 08/25/16 07:00 BP 129/75 08/25/16 07:00 Pulse Ox 96 08/25/16 07:00 Intake & Output 08/24/16 08/25/16 08/25/16 18:59 06:59 18:59 Intake Total 650 200 Balance 650 200 Intake: Intake, IV Titration 150 Amount Clindamycin 600 mg In 50 Dextrose 5% in Water 50 ml @ 100 mls/hr IVPB Q8HR STEPH[facility] Rx#:[id number] ceFAZolin 2 gm In Sodium 100 Chloride 0.9% 100 ml @ 100 mls/hr IVPB Q8H STEPH[facility] Rx#:[id number] Oral 500 200 Other: Voiding Method Toilet # Voids 3 1 - Constitutional General appearance: Present: obese - EENT Eyes: Present: PERRLA Ears: bilateral: normal - Neck Neck: Present: normal ROM - Respiratory Respiratory: bilateral: CTA - Cardiovascular Rhythm: regular - Gastrointestinal General gastrointestinal: Present: soft - Integumentary Integumentary Comment(s): Mild erythema with mild discoloration to left lower extremity - Musculoskeletal Musculoskeletal: Present: gait normal - Psychiatric Psychiatric: Present: A&O x's 3, appropriate affect, intact judgment & insight - Labs CBC & Chem 7: 08/25/16 07:58 08/24/16 08:03 Labs: Abnormal Lab Results - Last 24 Hours (Table) 08/24/16 08/24/16 08/24/16 Range/Units 08:03 16:49 21:06 RBC (4.30-5.90) m/uL Hgb (13.0-17.5) gm/dL Hct (39.0-53.0) % Chloride 108 H (98-107) mmol/L Glucose 132 H (74-99) mg/dL POC Glucose (mg/dL) 126 H 107 H (75-99) mg/dL 08/25/16 08/25/16 Range/Units 07:11 07:58 RBC 3.95 L (4.30-5.90) m/uL Hgb 12.4 L (13.0-17.5) gm/dL Hct 37.0 L (39.0-53.0) % Chloride (98-107) mmol/L Glucose (74-99) mg/dL POC Glucose (mg/dL) 106 H (75-99) mg/dL Microbiology - Last 24 Hours (Table) 08/22/16 16:29 Blood Culture - Preliminary Blood No Growth after 48 hours 08/22/16 15:33 Blood Culture - Preliminary Blood No Growth after 48 hours Assessment and Plan Plan: Assessment Strep bacteremia left leg cellulitis sepsis Inflammatory response syndrome Microscopic hematuria Leukocytosis improved Diabetes type 2 Hypertension Hyperlipidemia History of gout Degenerative joint disease History of elevated PSA Plan Continue consultation with infectious disease hopeful discharge soon on oral antibiotics
[2016-08-25] MEDS: LOSARTAN 50 MG TAB PO SCH (11:43)
[2016-08-25] MEDS: ATENOLOL 50 MG TAB PO SCH (11:43)
[2016-08-25 12:24] LABS: Glucose,Whole Blood 88 mg/dL (75-99)
[2016-08-25 17:21] LABS: Glucose,Whole Blood 101 mg/dL (75-99)
[2016-08-25 21:00] LABS: Glucose,Whole Blood 118 mg/dL (75-99)
[2016-08-26] MEDS: ceFAZolin 2 GM in SODIUM CHLORIDE 0.9% 100 ML IVPB SCH ×2 (02:46→10:04)
--- NOTE | 2016-08-26 07:21 | PN ---
DATE OF SERVICE: 08/25/2016 REASON FOR FOLLOWUP: Streptococcus agalactiae bacteremia and left lower extremity cellulitis. INTERVAL HISTORY: The patient is afebrile. He was complaining of some more swelling through the ankle area. However, the patient did not have any pain on movement of the ankle joint. Overall swelling and redness to left leg has improved. The patient denies having any chest pain, shortness of breath or cough. No abdominal pain or any diarrhea. On examination, blood pressure 120/84 with a pulse of 70, temperature 97.4. He is 94% on room air. General description is an elderly male, lying in bed in no distress. RESPIRATORY SYSTEM: Unlabored breathing. Clear to auscultation anteriorly. HEART: S1, S2. Regular rate and rhythm. ABDOMEN: Soft, no tenderness. LEFT LEG: Swelling and redness have improved. Examination of left ankle area, some swelling but no redness was noticed. There was no pain on movement of the ankle joint in all directions. LABS: Hemoglobin is 12.4, white count 6.7. DIAGNOSTIC IMPRESSION AND PLAN: Patient with group B strep bacteremia. Source is left lower extremity cellulitis with repeat blood culture has been negative. Plan will be to finish therapy with p.o. Keflex 500 mg t.i.d. for another 10 days with outpatient follow-up. Continue supportive care.
[2016-08-26 07:40] LABS: Glucose,Whole Blood 102 mg/dL (75-99)
[2016-08-26 07:47] VITALS: BP 111/83; PULSE 82; RESP 20; TEMP 97.5
[2016-08-26] MEDS: metFORMIN 500 MG TAB PO SCH (08:17)
[2016-08-26] MEDS: LORazepam 0.5 MG TAB PO SCH (08:17)
[2016-08-26] MEDS: FAMOTIDINE 20 MG TAB PO SCH (08:17)
[2016-08-26] MEDS: PYRIDOXINE 50 MG TAB PO SCH (08:17)
[2016-08-26] MEDS: ALLOPURINOL 300 MG TAB PO SCH (08:17)
[2016-08-26] MEDS: CALCIUM CARBONATE 500 MG CHEWABLE PO SCH (08:17)
[2016-08-26] MEDS: ATORVASTATIN 10 MG TAB PO SCH (08:17)
[2016-08-26] MEDS: ALLOPURINOL 100 MG TAB PO SCH (08:17)
[2016-08-26] MEDS: B COMPLEX-VIT C-VIT E-ZINC 1 EACH TAB PO SCH (08:18)
[2016-08-26] MEDS: LOSARTAN 50 MG TAB PO SCH (08:18)
[2016-08-26] MEDS: ASPIRIN 325 MG TAB PO SCH (08:18)
[2016-08-26] MEDS: ATENOLOL 50 MG TAB PO SCH (08:18)
[2016-08-26] MEDS: CHOLECALCIFEROL 1,000 UNIT TAB PO SCH (08:18)
[2016-08-26] MEDS: HYDROCHLOROTHIAZIDE 25 MG TAB PO SCH (08:18)
[2016-08-26] MEDS: SODIUM CHLORIDE 0.9% 1,000 ML IV SCH (08:20)
--- NOTE | 2016-08-26 12:05 | P.DS ---
Providers Date of admission: 08/22/16 10:37 Expected date of discharge: 08/26/16 Attending physician: Izaiah Puentes Consults: 08/22/16 13:49 Consult Physician Routine Consulting Provider: Melissa Mancini Consult Reason/Comments: positive blood culture Do you want consulting provider notified?: Already Contacted Primary care physician: Izaiah Puentes Hospital Course: 80-year-old male was admitted to the emergency room with signs of sepsis. Developed cellulitis left lower extremity.'s found to have a strep test bacteremia. Was evaluated by infectious disease and treated. Patient is improved patient states energy level improved. Assessment Strep bacteremia secondary to left lower leg extremity cellulitis systemic inflammatory response syndrome Microscopic hematuria history of elevated PSA Leukocytosis improved Diabetes type 2 Hypertension Hyperlipidemia History of gout Degenerative joint disease Plan Patient will start out patient oral antibiotics Keflex 500 mg 3 times a day for 10 days Patient is to follow-up with family physician and infectious disease Patient Condition at Discharge: Fair Plan - Discharge Summary New Discharge Prescriptions: Cephalexin [Keflex] 500 mg PO Q8HR #30 cap Discharge Medication List Allopurinol [Zyloprim] 100 mg PO QAM 08/21/16 [History] Allopurinol [Zyloprim] 300 mg PO QAM 08/21/16 [History] Aspirin 325 mg PO QAM 08/21/16 [History] Atenolol 100 mg PO QAM 08/21/16 [History] Atorvastatin [Lipitor] 10 mg PO QAM 08/21/16 [History] Calcium Carbonate [Calcium] 600 mg PO TID 08/21/16 [History] Cholecalciferol [Vitamin D3] 1,000 unit PO QAM 08/21/16 [History] Colchicine [Colcrys] 0.6 mg PO Q1H PRN MDD 5 tablets 08/21/16 [History] Hydrochlorothiazide 25 mg PO QAM 08/21/16 [History] LORazepam [Ativan] 0.5 mg PO QAM 08/21/16 [History] Losartan [Cozaar] 50 mg PO QAM 08/21/16 [History] [place]-3 Fatty Acids/Fish Oil [Fish Oil 1,000 mg Softgel] 2 cap PO QAM 08/21/16 [ History] Prostate Blend By [employer] (Otc) 1 tab PO BID 08/21/16 [History] Prostate Health (Otc) 1 tab PO BID 08/21/16 [History] Pyridoxine [Vitamin B-6] 100 mg PO QAM 08/21/16 [History] Saw Bells 500 mg PO BID 08/21/16 [History] Sulindac [Clinoril] 200 mg PO QAM 08/21/16 [History] Vitamin B Complex 1 cap PO QAM 08/21/16 [History] metFORMIN HCL [Glucophage] 500 mg PO BID 08/21/16 [History] Ascorbic Acid [Vitamin C] 1,000 mg PO DAILY 08/22/16 [History] Garlic 1,000 mg PO DAILY 08/22/16 [History] Gluc/Shar-MSM#1/C/Jose G/Gunner/Bor [Glucosamine-Chondroitin Tablet] 1 each PO BID [History] Multivitamins, Thera [Multivitamin] 1 tab PO DAILY 08/22/16 [History] Potassium 99 mg PO DAILY 08/22/16 [History] Acetaminophen Tab [Tylenol] 650 mg PO Q6HR PRN #0 tab 08/26/16 [Rx] Cephalexin [Keflex] 500 mg PO Q8HR #30 cap 08/26/16 [Rx] Follow up Appointment(s)/Referral(s): Izaiah Puentes MD [Primary Care Provider] - 1-2 days Patient Instructions/Handouts: Cellulitis (DC), Type 1 Diabetes in Adults (DC) Activity/Diet/Wound Care/Special Instructions: [facility] #[phone]
[2016-08-26 12:19] LABS: Glucose,Whole Blood 80 mg/dL (75-99)
[2016-08-26] MEDS ORDERED: CEPHALEXIN 500 MG CAP PO SCH (16:00)
--- NOTE | 2016-08-26 16:20 | PN ---
DATE OF SERVICE: 08/26/2016 Reason for follow-up is Streptococcus agalactiae bacteremia and left lower extremity cellulitis. INTERVAL HISTORY: The patient is afebrile. He is breathing comfortably. Denies significant chest pain, shortness of breath, cough. No abdominal pain or any pain in left leg area. Overall swelling and redness have improved. On examination, blood pressure is 118/83 with a pulse of 82, temperature of 97.5. He is 98% on room air. General description is an elderly male lying in bed in no distress. RESPIRATORY SYSTEM: Unlabored breathing. Clear to auscultation anteriorly. HEART: S1, S2, regular rate and rhythm. ABDOMEN: Soft, no tenderness. Left leg swelling and redness has improved. LABS: Hemoglobin 12.4, white count 6.7. Follow up blood culture has been negative. DIAGNOSTIC IMPRESSION AND PLAN: Patient with Streptococcus agalactiae bacteremia. Source is left lower extremity cellulitis. Patient did show overall clinical improvement. Plan to finish therapy with p.o. Keflex 500 mg daily for another 10 days with outpatient follow-up.
== END 2016-08-26 13:37 | disposition home health service (06) | DRG 872 ==
LOC: EC 11:39 → INTOOBSV 15:45 → 3OBS 15:45 → OBSVTOIN 08-22 10:37 → 4MS4W 08-22 21:20
PROVIDERS: ADMIT Family Medicine; ATTEND Family Medicine
DX: A40.9 Streptococcal sepsis, unspecified (principal); I95.9 Hypotension, unspecified; L03.116 Cellulitis of left lower limb; R31.29 Other microscopic hematuria; E11.9 Type 2 diabetes mellitus without complications; E78.5 Hyperlipidemia, unspecified; I10 Essential (primary) hypertension; M19.90 Unspecified osteoarthritis, unspecified site; G89.29 Other chronic pain; M10.00 Idiopathic gout, unspecified site; J34.89 Other specified disorders of nose and nasal sinuses; R00.0 Tachycardia, unspecified; M25.562 Pain in left knee; R53.1 Weakness; R97.20 Elevated prostate specific antigen [PSA]; Z91.041 Radiographic dye allergy status; Z79.84 Long term (current) use of oral hypoglycemic drugs; Z79.82 Long term (current) use of aspirin; Z86.73 Personal history of transient ischemic attack (TIA), and cerebral infarction without residual deficits; Z96.652 Presence of left artificial knee joint; Z79.899 Other long term (current) drug therapy; Z79.1 Long term (current) use of non-steroidal anti-inflammatories (NSAID); Z16.39 Resistance to other specified antimicrobial drug
CPT/HCPCS: 36415; 71020; 80048; 80053; 81001; 83036; 83605; 85025; 87040; 87077; 87086; 87186; 87502; 96361; 96365; 96366; 96367; 99285

== ENCOUNTER 2019-08-20 09:06 | Inpatient (IN) | payer MEDICARE, SELFPAY ==
[2019-08-20 09:43] LABS: Basophils # (A) 0.3 k/uL (0-0.2); Basophils % (A) 2 %; Eosinophils # (A) 0.5 k/uL (0-0.7); Eosinophils % (A) 4 %; HCT 43.4 % (39.0-53.0); HGB 14.5 gm/dL (13.0-17.5); Lymphocytes % (A) 16 %; MCH 30.8 pg (25.0-35.0); MCHC 33.4 g/dL (31.0-37.0); MCV 92.2 fL (80.0-100.0); Mean Platelet Volume 7.7; Monocytes # (A) 0.6 k/uL (0-1.0); Monocytes % (A) 5 %; Neutrophils # (A) 8.7 k/uL (1.3-7.7); Neutrophils % (A) 71 %; Platelet Count 170 k/uL (150-450); RBC 4.71 m/uL (4.30-5.90); WBC 12.3 k/uL (3.8-10.6)
--- NOTE | 2019-08-20 09:44 | ED ---
General Adult HPI - General Chief complaint: Neuro Symptoms/Deficit Stated complaint: Fall Time Seen by Provider: 08/20/19 09:19 Source: patient, RN notes reviewed, old records reviewed Mode of arrival: wheelchair Limitations: physical limitation - History of Present Illness Initial comments: 83 -year-old male presented for evaluation of left facial droop, history of CVA and fall with some confusion. Patient's history is obtained from the patient and his who is at bedside. He has had a progressive decline over the past several months with episodes of confusion, several falls. He developed a facial droop which began approximately 4 days ago. He had a episode of bowel incontinence this morning and fell in the shower. He denies any pain c omplaints. He denies headache. Denies focal numbness or extremity symptoms. He does have a left-sided facial droop on exam which according to his is been present for 4 days. He is currently on aspirin no anticoagulation. Denies chest pain or dyspnea. Denies abdominal pain. Denies nausea vomiting. Denies dysuria. - Related Data Home Medications Medication Instructions Recorded Confirmed Allopurinol [Zyloprim] 100 mg PO QAM 08/21/16 08/22/16 Allopurinol [Zyloprim] 300 mg PO QAM 08/21/16 08/22/16 Aspirin 325 mg PO QAM 08/21/16 08/22/16 Atenolol 100 mg PO QAM 08/21/16 08/22/16 Atorvastatin [Lipitor] 10 mg PO QAM 08/21/16 08/22/16 Calcium Carbonate [Calcium] 600 mg PO TID 08/21/16 08/22/16 Cholecalciferol [Vitamin D3 (25 1,000 unit PO QAM 08/21/16 08/22/16 Mcg = 1000 Iu)] Colchicine [Colcrys] 0.6 mg PO Q1H PRN MDD 5 tablets 08/21/16 08/22/16 Hydrochlorothiazide 25 mg PO QAM 08/21/16 08/22/16 LORazepam [Ativan] 0.5 mg PO QAM 08/21/16 08/22/16 Losartan [Cozaar] 50 mg PO QAM 08/21/16 08/22/16 [place]-3 Fatty Acids/Fish Oil [Fish 2 cap PO QAM 08/21/16 08/22/16 Oil 1,000 mg Softgel] Prostate Blend By [employer] system (Otc) 1 tab PO BID 08/21/16 08/22/16 Prostate Health (Otc) 1 tab PO BID 08/21/16 08/22/16 Pyridoxine [Vitamin B-6] 100 mg PO QAM 08/21/16 08/22/16 Saw [place] 500 mg PO BID 08/21/16 08/22/16 Sulindac [Clinoril] 200 mg PO QAM 08/21/16 08/22/16 Vitamin B Complex 1 cap PO QAM 08/21/16 08/22/16 metFORMIN HCL [Glucophage] 500 mg PO BID 08/21/16 08/22/16 Ascorbic Acid [Vitamin C] 1,000 mg PO DAILY 08/22/16 08/22/16 Garlic 1,000 mg PO DAILY 08/22/16 08/22/16 Glucosam/Shar-Msm1/C/Jose G/Bosw 1 each PO BID 08/22/16 08/22/16 [Glucosamine-Chondroitin Tablet] Multivitamins, Thera [Multivitamin 1 tab PO DAILY 08/22/16 08/22/16 (formulary)] Potassium 99 mg PO DAILY 08/22/16 08/22/16 Previous Rx's Medication Instructions Recorded Acetaminophen Tab [Tylenol] 650 mg PO Q6HR PRN #0 tab 08/26/16 Cephalexin [Keflex] 500 mg PO Q8HR #30 cap 08/26/16 Allergies Allergy/AdvReac Type Severity Reaction Status Date / Time Iodinated Contrast Media AdvReac Nausea Verified 08/21/16 19:45 [Iodinated Contrast Media - Oral and] Review of Systems ROS Statement: Those systems with pertinent positive or pertinent negative responses have been documented in the HPI. ROS Other: All systems not noted in ROS Statement are negative. Past Medical History Past Medical History: CVA/TIA, Diabetes Mellitus, Hearing Disorder / Deafness, Hyperlipidemia, Hypertension, Osteoarthritis (OA), Pneumonia Additional Past Medical History / Comment(s): kidney stones History of Any Multi-Drug Resistant Organisms: None Reported Past Surgical History: Orthopedic Surgery Additional Past Surgical History / Comment(s): arthroscopic left knee surgery 1986, bilat cataract removal Past Anesthesia/Blood Transfusion Reactions: No Reported Reaction Past Psychological History: No Psychological Hx Reported Smoking Status: Never smoker Past Alcohol Use History: None Reported Past Drug Use History: None Reported - Past Family History Father Family Medical History: COPD, Diabetes Mellitus General Exam Limitations: physical limitation General appearance: alert, in no apparent distress Head exam: Present: atraumatic, normocephalic Eye exam: Present: normal appearance, PERRL Neck exam: Present: normal inspection. Absent: tenderness, meningismus Respiratory exam: Present: normal lung sounds bilaterally. Absent: respiratory distress Cardiovascular Exam: Present: regular rate, normal rhythm GI/Abdominal exam: Present: soft. Absent: distended, tenderness Extremities exam: Present: normal inspection, normal capillary refill. Absent: pedal edema Back exam: Present: normal inspection Neurological exam: Present: alert, oriented X3, CN II-XII intact, motor sensory deficit (Left facial droop, NIH of 1) Psychiatric exam: Present: normal affect, normal mood Skin exam: Present: warm, dry, intact. Absent: cyanosis, diaphoretic Course Vital Signs 08/20/19 08/20/19 08/20/19 09:08 09:30 10:00 Temperature 97.8 F Pulse Rate 91 80 92 Respiratory 18 Rate Blood Pressure 144/80 135/76 136/83 O2 Sat by Pulse 100 97 97 Oximetry EKG Findings - EKG Comments: EKG Findings:: EKG: Sinus rhythm with first-degree AV block, left axis, LVH, rate of 91, MO interval 218, QRS duration 104, QTC 462, no ST segment elevation. Medical Decision Making - Medical Decision Making 83-year-old male presenting with 4 days of facial droop, worsening weakness and fall. There is concern for CVA with this patient with NIH of 1 and left facial droop. CT is performed which shows a acute CVA versus mass with edema and 4 mm of subfalcine herniation. I did discuss case with stroke neurologist Dr. Madrigal, who had recommended transfer for further evaluation treatment, patient and his declined transfer they are adamant about the fact that they would not want any surgical intervention the patient is a DO NOT RESUSCITATE. They are willing to stay at this institution for further evaluation. Discussed case with the neurologist as well as a admitting physician Dr. Rider and Dr. Riggins. They will accept admission for further stroke evaluation and the possibility of brain mass. Patient's has a chest x-ray does show a retrocardiac atelectasis first pneumonia and a mild white count of 12.3. He does receive a dose of IV antibiotics in the emergency department for suspected pneumonia. He remained stable in the em ergency department with an unchanged neurologic exam. - Lab Data Result diagrams: 08/20/19 09:31 08/20/19 09:31 Lab Results 08/20/19 08/20/19 08/20/19 Range/Units 09:31 09:31 09:31 WBC 12.3 H (3.8-10.6) k/uL RBC 4.71 (4.30-5.90) m/uL Hgb 14.5 (13.0-17.5) gm/dL Hct 43.4 (39.0-53.0) % MCV 92.2 (80.0-100.0) fL MCH 30.8 (25.0-35.0) pg MCHC 33.4 (31.0-37.0) g/dL RDW 14.0 (11.5-15.5) % Plt Count 170 (150-450) k/uL Neutrophils % 71 % Lymphocytes % 16 % Monocytes % 5 % Eosinophils % 4 % Basophils % 2 % Neutrophils # 8.7 H (1.3-7.7) k/uL Lymphocytes # 2.0 (1.0-4.8) k/uL Monocytes # 0.6 (0-1.0) k/uL Eosinophils # 0.5 (0-0.7) k/uL Basophils # 0.3 H (0-0.2) k/uL PT 10.3 (9.0-12.0) sec INR 1.0 (<1.2) APTT 22.4 (22.0-30.0) sec Sodium 138 (137-145) mmol/L Potassium 3.6 (3.5-5.1) mmol/L Chloride 104 (98-107) mmol/L Carbon Dioxide 24 (22-30) mmol/L Anion Gap 10 mmol/L BUN 21 H (9-20) mg/dL Creatinine 0.94 (0.66-1.25) mg/dL Est GFR (CKD-EPI)AfAm 86 (>60 ml/min/1.73 sqM) Est GFR (CKD-EPI)NonAf 74 (>60 ml/min/1.73 sqM) Glucose 185 H (74-99) mg/dL Calcium 10.2 (8.4-10.2) mg/dL Magnesium 1.4 L (1.6-2.3) mg/dL Total Bilirubin 1.4 H (0.2-1.3) mg/dL AST 31 (17-59) U/L ALT 17 (4-49) U/L Alkaline Phosphatase 54 (38-126) U/L Troponin I (0.000-0.034) ng/mL Total Protein 7.0 (6.3-8.2) g/dL Albumin 4.0 (3.5-5.0) g/dL 08/20/19 Range/Units 09:31 WBC (3.8-10.6) k/uL RBC (4.30-5.90) m/uL Hgb (13.0-17.5) gm/dL Hct (39.0-53.0) % MCV (80.0-100.0) fL MCH (25.0-35.0) pg MCHC (31.0-37.0) g/dL RDW (11.5-15.5) % Plt Count (150-450) k/uL Neutrophils % % Lymphocytes % % Monocytes % % Eosinophils % % Basophils % % Neutrophils # (1.3-7.7) k/uL Lymphocytes # (1.0-4.8) k/uL Monocytes # (0-1.0) k/uL Eosinophils # (0-0.7) k/uL Basophils # (0-0.2) k/uL PT (9.0-12.0) sec INR (<1.2) APTT (22.0-30.0) sec Sodium (137-145) mmol/L Potassium (3.5-5.1) mmol/L Chloride (98-107) mmol/L Carbon Dioxide (22-30) mmol/L Anion Gap mmol/L BUN (9-20) mg/dL Creatinine (0.66-1.25) mg/dL Est GFR (CKD-EPI)AfAm (>60 ml/min/1.73 sqM) Est GFR (CKD-EPI)NonAf (>60 ml/min/1.73 sqM) Glucose (74-99) mg/dL Calcium (8.4-10.2) mg/dL Magnesium (1.6-2.3) mg/dL Total Bilirubin (0.2-1.3) mg/dL AST (17-59) U/L ALT (4-49) U/L Alkaline Phosphatase (38-126) U/L Troponin I <0.012 (0.000-0.034) ng/mL Total Protein (6.3-8.2) g/dL Albumin (3.5-5.0) g/dL Critical Care Time Critical Care Time: Yes Total Critical Care Time: 35 Disposition Clinical Impression: Cerebrovascular accident (CVA), Pneumonia Disposition: ADMITTED IP TO THIS [facility] Condition: Serious Is patient prescribed a controlled substance at d/c from ED?: No Referrals: Izaiah Puentes MD [Primary Care Provider] - 1-2 days Decision to Admit Reason: Admit from EC Decision Date: 08/20/19 Decision Time: 11:15
[2019-08-20 09:51] LABS: Partial Thromboplastin Time 22.4 sec (22.0-30.0); Prothrombin Time 10.3 sec (9.0-12.0)
[2019-08-20 10:04] LABS: Calcium 10.2 mg/dL (8.4-10.2); Magnesium 1.4 mg/dL (1.6-2.3); Potassium 3.6 mmol/L (3.5-5.1); Total Bilirubin 1.4 mg/dL (0.2-1.3)
--- NOTE | 2019-08-20 10:05 | CT ---
EXAMINATION TYPE: CT brain wo con DATE OF EXAM: 08/20/2019 COMPARISON: None HISTORY: Neuro deficit, acute, stroke suspected CT DLP: 1083.[address] of the brain was performed. There is sulcal effacement noted to involve the right parietal lobe. There is midline shift from righ t to left of 4 mm with subfalcine herniation. The findings are likely related to acute CVA however un derlying mass is difficult to exclude. There is decreased attenuation within the caudate nucleus as w ell as the right-sided johansen radiata extending into the centrum semioval bilaterally. There is no ev idence for intracranial hemorrhage. There is decreased attenuation about the periventricular white matter and deep white matter of both c erebral hemispheres, compatible with chronic small vessel ischemia. Differential diagnosis does inclu de demyelination. Osseous calvarium is intact. If symptoms persist consider MRI. IMPRESSION: 1. There is sulcal effacement noted to involve the right parietal lobe. There is midline shift from r ight to left of 4 mm with subfalcine herniation. The findings are likely related to acute CVA however underlying mass is difficult to exclude. No evidence for hemorrhagic transformation at this time. MR I of the brain would be of value.
[2019-08-20] MEDS ORDERED: SODIUM CHLORIDE 0.9% 1,000 ML IV ONE (10:17)
[2019-08-20] MEDS ORDERED: ASPIRIN 325 MG TAB PO STA (10:19)
--- NOTE | 2019-08-20 10:34 | XR ---
EXAMINATION TYPE: XR chest 2V DATE OF EXAM: 08/20/2019 COMPARISON: 08/21/2016 HISTORY: 83-year-old male altered mental status, confusion TECHNIQUE: PA and lateral views FINDINGS: Heart normal size. Elongation thoracic aorta with atherosclerotic arch calcifications. Some patchy re trocardiac opacity. No other consolidation or pleural effusion. IMPRESSION: Some patchy retrocardiac atelectasis or developing infiltrate. Follow-up after any potential treatmen t in 4-6 weeks to reassess.
[2019-08-20] MEDS ORDERED: MAGNESIUM SULFATE-D5W PMX 1 GM in DEXTROSE/WATER 1 100ML.BAG IVPB ONE (10:36)
[2019-08-20] MEDS ORDERED: cefTRIAXone IN SWFI 1,000 MG/10 ML SYRINGE IVP STA (10:36)
[2019-08-20] MEDS: SODIUM CHLORIDE 0.9% 1,000 ML IV SCH ×2 (11:34→22:57)
--- NOTE | 2019-08-20 14:35 | P.CNNES ---
History of Present Illness Consult date: 08/20/19 Requesting physician: Reyes Moses Reason for Consult: CVA History of Present Illness: Patient is a 83-year-old male who came to the hospital because of chronic, recurrent episodes of speech difficulty, which his describes as "TIA". Patient's was present, who states that the symptoms started about 25 years ago. Patient has difficulty with speaking, that lasted up to 30 minutes. After the first incident, did not happen for a few years. The episodes then started occurring more frequently. Patient's states that they could not see a doctor because they had no medical insurance. In the last 3 years, these episodes have been happening 2-3 times a week. The last 2 weeks they have become even much more worse, as his states that patient was losing control, falling, drooling out of left side of the mouth, and are occurring more frequently. Patient uses cane since 1986 since he has leg surgery. Patient denies any history of tobacco or alcohol, diabetes or hypertension. Patient does have a primary doctor, Dr. Puentes but patient states that he has never disclose this condition to his primary physician. Patient says that he did undergo an MRI of the brain about 10-15 years ago, which was reportedly normal. Patient currently is not being treated for these episodes. Patient underwent computed tomography scan of the head, which revealed sulcal effacement noted to involve the right parietal lobe. There is midline shift from right to left of 4 mm with subfalcine herniation. The findings are likely related to acute CVA however underlying mass is difficult to exclude. No evidence for hemorrhagic transformation at this time. MRI of the brain would be very valuable. Chest x-ray showed some patchy retrocardiac atelectasis or developing infiltrate. EKG showed sinus rhythm with first-degree AV block. Patient's blood test shows WBC 12.3 hemoglobin 14.5 platelets are 170. PT/PTT normal. Chem-7 normal. Liver panel normal. Review of Systems Patient denies any headache, double vision or loss of vision process or thought dysphagia. Denies any numbness tingling nausea vomiting diarrhea. Past Medical History Past Medical History: CVA/TIA, Diabetes Mellitus, Hearing Disorder / Deafness, Hyperlipidemia, Hypertension, Osteoarthritis (OA), Pneumonia, Renal Disease Additional Past Medical History / Comment(s): Several TIAs, NIDDM-diet controlled, neuropathy bilateral hands/feet, gout bilateral feet, arthritis bilateral hands, past L lower leg cellulitis/septic, elevated PSA counts, nephrolithiasis-passed stones on his own, bilateral hearing aides, L knee fracture with surgery/40% disabled/wears a knee brace. History of Any Multi-Drug Resistant Organisms: None Reported Past Surgical History: Orthopedic Surgery Additional Past Surgical History / Comment(s): 1986 ORIF L knee with hardware, bilateral cataract removals. Past Anesthesia/Blood Transfusion Reactions: No Reported Reaction Smoking Status: Never smoker - Past Family History Father Family Medical History: COPD, Diabetes Mellitus Medications and Allergies Home Medications Medication Instructions Recorded Confirmed Type Allopurinol [Zyloprim] 100 mg PO QAM 08/21/16 08/20/19 History Allopurinol [Zyloprim] 300 mg PO QAM 08/21/16 08/20/19 History Aspirin 325 mg PO QAM 08/21/16 08/20/19 History Atenolol 100 mg PO QAM 08/21/16 08/20/19 History Atorvastatin [Lipitor] 10 mg PO QAM 08/21/16 08/20/19 History Calcium Carbonate [Calcium] 1,200 mg PO TID 08/21/16 08/20/19 History Cholecalciferol [Vitamin D3 (25 1,000 unit PO QAM 08/21/16 08/20/19 History Mcg = 1000 Iu)] Hydrochlorothiazide 25 mg PO QAM 08/21/16 08/20/19 History LORazepam [Ativan] 0.5 mg PO QAM PRN 08/21/16 08/20/19 History [place]-3 Fatty Acids/Fish Oil [Fish 1 cap PO TID 08/21/16 08/20/19 History Oil 1,000 mg Softgel] Saw [place] 500 mg PO BID 08/21/16 08/20/19 History Sulindac [Clinoril] 200 mg PO BID 08/21/16 08/20/19 History Vitamin B Complex 1 cap PO QAM 08/21/16 08/20/19 History Ascorbic Acid [Vitamin C] 1,000 mg PO DAILY 08/22/16 08/20/19 History Garlic 1,000 mg PO BID 08/22/16 08/20/19 History Multivitamins, Thera [Multivitamin 1 tab PO DAILY 08/22/16 08/20/19 History (formulary)] Potassium 99 mg PO DAILY 08/22/16 08/20/19 History Metoprolol Tartrate [Lopressor] 100 mg PO BID 08/20/19 08/20/19 History Urinozinc Prostate 1 cap PO BID 08/20/19 08/20/19 History Allergies Allergy/AdvReac Type Severity Reaction Status Date / Time Iodinated Contrast Media AdvReac Nausea Verified 08/20/19 11:16 [Iodinated Contrast Media - Oral and] chemical stress test AdvReac Nausea Uncoded 08/20/19 11:16 MRI contrast AdvReac Nausea/dizz Uncoded 08/20/19 11:16 iness Physical Examination - Vital Signs Vital Signs: Vital Signs Temp Pulse Resp BP Pulse Ox 08/20/19 12:30 60 18 107/62 97 08/20/19 12:00 73 20 105/67 97 08/20/19 11:30 69 21 112/66 97 08/20/19 11:17 60 18 107/62 97 08/20/19 11:00 73 21 111/70 95 08/20/19 10:30 78 16 93/51 94 L 08/20/19 10:00 92 136/83 97 08/20/19 09:30 80 135/76 97 08/20/19 09:08 97.8 F 91 18 144/80 100 Intake and Output 08/19/19 08/20/19 08/20/19 22:59 06:59 14:59 Other: Weight 81.647 kg On examination patient is an elderly male, in no distress. Patient is alert awake oriented to time place and person. Speech and language functions are normal. Attention and concentration fund of knowledge is adequate. On cranial examination pupils are round and reactive to light, visual puga are full on confrontation. Extraocular muscles are intact. Patient has left facial weakness but tongue protrudes the midline. Palatal elevation sensation normal. On muscle strength testing patient has mild left pronator drift. The strength is normal in the right arm and right leg. On the left side, his finance mgr is 5-, biceps triceps are normal. Deltoid is normal. Hip flexion is 4-on the left whereas normal on the right. Ankles and toes are normal. Sensory touch is normal with no neglect. No ataxia for [id number] testing. Reflexes are 1+ and plantars downgoing bilaterally. Tone and bulk of muscles normal. Gait deferred. Results - Laboratory Findings CBC and BMP: 08/21/19 05:40 08/21/19 05:40 Abnormal Lab Findings: Abnormal Labs 08/20/19 08/20/19 09:31 09:31 WBC 12.3 H Neutrophils # 8.7 H Basophils # 0.3 H BUN 21 H Glucose 185 H Magnesium 1.4 L Total Bilirubin 1.4 H Assessment and Plan Assessment: * 83-year-old male admitted with stereotypical, chronic, recurrent episodes of speech difficulty, lasting for 20-30 minutes. These episodes have been going on for last 25 years, now with increased frequency. Patient has developed new onset left facial droop, very mild left-sided weakness. Computed tomography scan of the head revealed possibility of a mass in the right parietal region, with significant mass effect and a 4 mm subfalcine herniation. Rule out meningioma, or primary brain tumor. CVA much less likely. Patient's recurrent, stereotypical spells are possible focal seizures. Plan: * ED staff has discussed with the patient about transfer to facility for neurosurgical evaluation but patient and his has declined. They do not want any aggressive treatment. Patient is DO NOT RESUSCITATE. We will at this point perform an MRI of the brain with and without contrast to evaluate for mass, and other possibilities. We will check EEG to evaluate for epileptiform activity. Further management will be based upon above test results.
--- NOTE | 2019-08-20 17:16 | MR ---
EXAMINATION TYPE: MR brain wo/w con DATE OF EXAM: 08/20/2019 COMPARISON: CT scan 08/20/2019 HISTORY: Neuro deficit, CVA/Mass TECHNIQUE: Multiplanar, multisequence images of the brain and brainstem is performed without and with IV contras t, utilizing 7.5 mL intravenous Gadavist . FINDINGS: Diffusion weighted images demonstrate no evidence of a recent infarct or other diffusion ab normality. There is a large mass appears to be extra-axial causing significant compression of the ce rebral cortex and right to left subfalcine herniation and midline shift. The mass measures 6.8 x 5 x 5.9 cm. There is contralateral dilation of the temporal horn. Degree of brainstem compression not exc luded. There is approximate 6 mm midline shift from right to left craniocervical junction appears within normal limits. Partially empty sella turcica noted. The dural venous sinuses appear patent. Changes of chronic sinusitis noted. Intracranial atherosclerotic change s noted.. Report called to the patient's nurse. Generalized degenerative change noted there is evidence of numerous focal areas of abnormal signal th e white matter which are nonspecific most typical remote microvascular ischemia. IMPRESSION: 1. Large enhancing mass measuring 6.8 x 5 x 5.9 cm which appears to be likely extra-axial resulting i n compression of the adjacent cerebral cortex and subfalcine herniation with midline shift from right to left measuring approximately 6 mm. Degree of uncal herniation or brainstem compression not exclud ed. Given the presence of a dural tail and most likely etiology is an extra-axial mass such as a larg e meningioma. Other etiologies not excluded. 2. Degenerative and nonspecific white matter changes most typical remote microvascular ischemia.
[2019-08-20] MEDS ORDERED: DEXAMETHASONE SOD PHOSPHATE 10 MG/ML 1 ML VIAL IV STA (17:20)
[2019-08-20] MEDS ORDERED: LORazepam 0.5 MG TAB PO PRN (19:02)
[2019-08-20 20:41] LABS: Glucose,Whole Blood 185 mg/dL (75-99)
[2019-08-20] MEDS: CALCIUM CARBONATE 500 MG CHEWABLE PO SCH (21:15)
[2019-08-20] MEDS: METOPROLOL TARTRATE 50 MG TAB PO SCH (21:16)
--- NOTE | 2019-08-20 23:53 | HP ---
HISTORY AND PHYSICAL I am covering for Dr. Puentes. DATE OF SERVICE: 08/20/2019. CHIEF COMPLAINTS: The weakness of the left side and left facial droop. HISTORY OF PRESENT ILLNESS: This 83-year-old gentleman with a past medical history of multiple medical problems including CVA, TIA, diabetes, hearing defect, hypertension, hyperlipidemia, DJD, history of TIA, is being followed Dr. Izaiah Puentes in the outpatient setting, complaining of increasing progressive weakness according to the . The lives with her and basically because of increasing weakness and apparently patient fell in the bathroom today. The patient unable to pick him up and the patient was taken to [facility] and admitted for further evaluation and treatment. The evaluation in the ER with a CT scan of the brain showed evidence of right parietal lobe abnormality and subsequently an MRI was done. Neurology evaluation in progress also. MRA showed significant lesion about 8 x 5 x 5.9 cm large lesion extra-axial on the right cerebral cortex with significant midline shift by approximately over 6 mm. Degree of any uncal herniation of the brainstem was also not excluded. The case was discussed with the family. Neurology consultation also in progress. At this time, the and the patient clearly indicates that they do not want any surgery and they are opting for NO CODE, NO CPR and NO VENT. At this time the patient is being admitted here without neurology consultation. Prognosis extremely guarded and at this time, the also requested that the patient be discharged to F because she is unable to take care of the patient because of the multiple complex medical issues and gait dysfunction and other associated abnormalities also. There is no history of fever, rigors. No history of trauma at this time. PAST MEDICAL HISTORY: TIA, history of diabetes type 2, hearing defect, hypertension, hyperlipidemia, history of pneumonia, renal disease. HOME MEDICATIONS: 1. Ativan 0.5 mg q.a.m. p.r.n. 2. Garlic 1000 mg p.o. b.i.d. 3. Vitamin C 1000 mg p.o. daily. 4. Saw [place] 500 mg p.o. b.i.d. 5. Potassium 99 mg p.o. 6. [place]-3 fatty acids p.o. daily. 7. Aspirin 320 mg p.o. q.a.m. 8. Vitamin B complex. 9. Multivitamins one p.o. daily. 10.Vitamin D3 1000 units q.a.m. 11.Calcium 1200 mg p.o. t.i.d. 12.Lopressor 100 mg p.o. b.i.d. 13.Hydrochlorothiazide 25 mg q.i.d. 14.Lipitor 10 mg q.a.m. 15.Atenolol 100 mg q.h.s. 17.Zyloprim 300 mg q.a.m. and 100 mg Q a.m. ALLERGIES: IODINATED CONTRAST DYE, MRI CONTRAST. FAMILY HISTORY: History of COPD, diabetes in the family. SOCIAL HISTORY: No history of smoking. No history of alcohol intake. REVIEW OF SYSTEMS: ENT diminished vision. Diminished hearing. CARDIOVASCULAR: No angina or palpitations. RESPIRATION as mentioned earlier. GASTROINTESTINAL: As mentioned earlier. no dysuria. Nervous System as mentioned earlier. Allergy/Immunology: No asthma or hayfever. Musculoskeletal as mentioned earlier. Hematology/Oncology as mentioned earlier. Endocrine: No history of diabetes or hypothyroidism. CONSTITUTIONAL: As mentioned earlier. DERMATOLOGY: Negative. RHEUMATOLOGY: Negative. PSYCHIATRY: As mentioned earlier. PHYSICAL EXAMINATION: Alert and oriented times two. Pulse 73, blood pressure 105/60, respirations 20, temperature normal, pulse ox 97% on room air. HEENT: Conjunctivae normal. Oral mucosa moist. NECK is no jugular venous distention. No carotid bruit. No lymph node enlargement. CARDIOVASCULAR SYSTEM: S1, S2 muffled. No S3, S4. RESPIRATION: Breath sounds diminished in the bases. Scattered rhonchi and crackles. ABDOMEN: Soft, nontender. No mass palpable. LEGS: No edema. No swelling. NERVOUS SYSTEM: Higher functions as mentioned earlier, left-sided facial palsy present, possible upper motor neuron minimal weakness on the left side. Incoordination also present. Gait dysfunction present. SKIN: No ulcers. No rashes and no bleeding. JOINTS no active deforming arthropathy. LYMPHATICS: No lymph nodes palpable in the neck, axillae or groin. LAB STUDIES: WBC 12.3, sodium 130, potassium 3.6, magnesium is 1.4. Total bilirubin is 1.4. ASSESSMENT: 1. 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 2. Weakness of the right side caused by the cerebral tumor. 3. Hypomagnesemia. 4. Generalized weakness and gait dysfunction. 5. Increased WBC. 6. Cerebrovascular accident, transient ischemic attack. 7. Diabetes mellitus type 2. 8. Hard of hearing. 9. Hypertension. 10.Hyperlipidemia. 11.History of degenerative joint disease. 12.History of pneumonia. 13.History of peripheral neuropathy. 14.History of gout. 15.History of degenerative joint disease. 16.History of ORIF of the left knee. 17.NO CODE, NO CPR. NO VENT. RECOMMENDATIONS DISCUSSION: In this 83 -year-old gentleman who presented with multiple complex medical issues, we will monitor the patient closely continue the current medications, management and symptomatic treatment. I would recommend continue the current medications and the family does not want any active treatment. Otherwise, neurology input appreciated. Discussed at length with the and the patient at the bedside and I would also recommend PT/OT evaluation and possible ECF rehab also. Guarded prognosis because of multiple complex medical issues. Further recommendations to follow. A copy of dictation being forwarded to Dr. Izaaih Puentes who is the primary physician. Dr. Izaiah Puentes will follow tomorrow. MMODL / IJN: [id number] / MTDD
[2019-08-21 05:16] LABS: Glucose,Whole Blood 180 mg/dL (75-99)
[2019-08-21 06:21] LABS: Basophils % (A) 0 %; Eosinophils % (A) 0 %; HCT 40.8 % (39.0-53.0); HGB 13.9 gm/dL (13.0-17.5); Lymphocytes % (A) 13 %; MCH 31.1 pg (25.0-35.0); MCV 91.6 fL (80.0-100.0); Monocytes # (A) 0.1 k/uL (0-1.0); Monocytes % (A) 2 %; Neutrophils # (A) 6.4 k/uL (1.3-7.7); Neutrophils % (A) 84 %; Platelet Count 158 k/uL (150-450); RBC 4.45 m/uL (4.30-5.90); WBC 7.6 k/uL (3.8-10.6)
[2019-08-21 06:35] LABS: African American GFR (CKD) >90 (>60 ml/min/1.73 sqM); Anion Gap 9 mmol/L; Blood Urea Nitrogen 20 mg/dL (9-20); Calcium 9.1 mg/dL (8.4-10.2); Carbon Dioxide 24 mmol/L (22-30); Chloride 104 mmol/L (98-107); Cholesterol 124 mg/dL (<200); Glucose 169 mg/dL (74-99); HDL Cholesterol 45 mg/dL (40-60); LDL Cholesterol,Calculated 67 mg/dL (0-99); Non-African American GFR(CKD) 80 (>60 ml/min/1.73 sqM); Potassium 3.8 mmol/L (3.5-5.1); Sodium 137 mmol/L (137-145); Triglycerides 62 mg/dL (<150)
[2019-08-21] MEDS: HYDROCHLOROTHIAZIDE 25 MG TAB PO SCH (09:07)
[2019-08-21] MEDS: ATENOLOL 50 MG TAB PO SCH (09:07)
[2019-08-21] MEDS: CHOLECALCIFEROL 1,000 UNIT TAB PO SCH (09:07)
[2019-08-21] MEDS: MULTIVITAMINS, THERA 1 EACH TAB PO SCH (09:07)
[2019-08-21] MEDS: ALLOPURINOL 300 MG TAB PO SCH (09:07)
[2019-08-21] MEDS: ASPIRIN 325 MG TAB PO SCH (09:08)
[2019-08-21] MEDS: ATORVASTATIN 10 MG TAB PO SCH (09:08)
[2019-08-21] MEDS: METOPROLOL TARTRATE 50 MG TAB PO SCH ×2 (09:08→20:56)
[2019-08-21] MEDS: CALCIUM CARBONATE 500 MG CHEWABLE PO SCH ×3 (09:08→20:56)
[2019-08-21] MEDS: ALLOPURINOL 100 MG TAB PO SCH (09:08)
--- NOTE | 2019-08-21 11:17 | CDI ---
Documentation Clarification Form Date: 08/21/2019 11:04:19 AM From: Zehra MelchorHellerVITOR, CCDS Admit Date: 08/20/2019 11:16:00 AM Patient Name: Gabriel Jha Visit Number: [id number] Discharge Date: ATTENTION: The Clinical Documentation Specialists (CDI) and [facility] Coding Staff appreciate your assistance in clarifying documentation. Please respond to the clarification below the line at the bottom and electronically sign. The CDI & [facility] Coding staff will review the response and follow-up if needed. Please note: Queries are made part of the Legal Health Record. If you have any questions, please contact the author of this message via ITS. Dr. Felecia Riggins: Per the 08/20 ED note, the patient is admitted with possible CVA & pneumonia, nos. The History & Physical on 08/20 includes pneumonia a history only. History/Risk Factors: Pneumonia, TIAs, Hypertension, Hyperlipidemia, Renal Disease nos, NIDDM II with peripheral neuropathy, DJD & hearing loss. Patient is DNR/DNI. Clinical Indicators: Presented to the ED on 08/20 with left facial droop, left side weakness & confusion, arrived via EMS after falling in the bathtub, unable to get up. Admitted for possible CVA & pneumonia. Per neurology, possible brain mass or tumor with herniation. Vital signs: T 97.8, P 91, R 18, BP 144/80, PO 100 ra LAB: WBC 12.3^, Neut 8.7^, BUN 21^, Glucose 185^, Magnesium 1.4*, Total Bilirubin 1.4^. RAD: CXR: some patchy retrocardiac atelectasis or developing infiltrate. Lung assessment: normal lung sounds bilaterally. Treatment: IV fluid bolus 1000 mls @ 999 x1, IV Rocephin 1000 mg x1 (started in ED), IV MagSulf 100 mls @ 100 x1, IV Decadron. No O2. In order to capture the severity of condition, please clarify if the condition signifies and you are treating for: Pneumonia is ruled out Viral Pneumonia, specify casual organism (if known): Healthcare Acquired Pneumonia/Pneumonia, unspecified Other Pneumonia, please specify: Other condition, please specifiy: Unable to determine (Last Revision: October 2017) Unable to determine MTDD
--- NOTE | 2019-08-21 11:31 | CDI ---
Documentation Clarification Form Date: 08/21/2019 11:18:56 AM From: Zehra HellerVITOR napoles, CCDS Admit Date: 08/20/2019 11:16:00 AM Patient Name: Gabriel Jha Visit Number: [id number] Discharge Date: ATTENTION: The Clinical Documentation Specialists (CDI) and [facility] Coding Staff appreciate your assistance in clarifying documentation. Please respond to the clarification below the line at the bottom and electronically sign. The CDI & [facility] Coding staff will review the response and follow-up if needed. Please note: Queries are made part of the Legal Health Record. If you have any questions, please contact the author of this message via ITS. Dr. Felecia Riggins: Per the 08/20 ED note and the 08/20 History & Physical, the patient has NIDDM type II with no associated conditions or manifestations documented. History/Risk Factors: NIDDM II, Peripheral Neuropathy, CVA or TIAs, Hypertension, Hyperlipidemia, DJD, Pneumonia, Gout, Kidney Stones, DJD, patient is DNR/DNI. Clinical Indicators: Presented to the ED on 08/20 from home via EMS after a fall in the bathtub & unable to get up, diagnosed with a possible brain tumor & compression & possible pneumonia. LAB: Glucose 08/20: 185^, 07/21: 169^ Treatment: Home meds include Glucophage (not given yet this admission), Zyloprim, Colcrys. IV fluid bolus 1,000 mls @ 999 x1, IV Rocephin, IV MagSulfate x1, IV Decadron. In order to capture the severity of Illness and necessary documentation specificity, please clarify any body system complications or specific manifestations related to the diabetes, please choose all that may apply: Diabetes Mellitus Type II with Hyperglycemia Diabetic Peripheral Neuropathy Other Diabetic related conditions or manifestations: Other condition, please specify: Unable to determine (Last Revision: April 2017) Diabetes Mellitus Type II with Hyperglycemia MTDD
--- NOTE | 2019-08-21 11:44 | CDI ---
Documentation Clarification Form Date: 08/21/2019 11:32:52 AM From: Zehra HellerVITOR, CCDS Admit Date: 08/20/2019 11:16:00 AM Patient Name: Gabriel Jha Visit Number: [id number] Discharge Date: ATTENTION: The Clinical Documentation Specialists (CDI) and [facility] Coding Staff appreciate your assistance in clarifying documentation. Please respond to the clarification below the line at the bottom and electronically sign. The CDI & [facility] Coding staff will review the response and follow-up if needed. Please note: Queries are made part of the Legal Health Record. If you have any questions, please contact the author of this message via ITS. Dr. Bal Torres: Per the 08/20 ED note: presented with left side facial droop, left side weakness & confusion, given IV Decadron. Per the 08/20 CT brain: effacement, decreased attenuation. Per the 08/20 Neurology Consult: sulcal effacement right parietal lobe is documented per the CT Brain. History/Risk Factors: Previous CVA or TIAs, Hypertension, Hyperlipidemia, multiple falls. DNR/DNI. Clinical Indicators: Presented to the ED on 08/20 as above via EMS after a fall in the bathtub & unable to get up, no LOC. Generalized weakness & left side deficits as described. Labs: WBC 12.3, Neut 8.7, Basophils 0.3, BUN 21, Gluc 185, Mag 1.4, Total Bilirubin 1.4 CT Brain 08/20: Sulcal effacement right parietal lobe, midline shift right to left with subfalcine herniation, likely related to acute CVA, underlying mass difficult to exclude. MRI Brain 08/20: Large enhancing mass likely extra-axial resulting in compression of the adjacent cerebral cortex & subfalcine herniation w/midline shift rt to left. Degree of uncal herniation or brainstem compression not excluded, likely extra-axial mass such as large meningioma. Treatment: IV fluid bolus x1, IV Rocephin x1, IV Decadron, neuro assessment. In your professional opinion, can you please clarify the underlying cause, condition or process, if any, represented by these findings? Cytotoxic cerebral edema Vasogenic cerebral edema Traumatic cerebral edema Other cerebral edema, please specify Cerebral edema, etiology unknown Unable to determine Other condition, please specify In my opinion, it is vasogenic cerebral edema due to large meningioma. Thank you. (Last Revision: April 2017) MTDD
[2019-08-21 12:25] LABS: Glucose,Whole Blood 163 mg/dL (75-99)
--- NOTE | 2019-08-21 14:14 | EEG ---
ELECTROENCEPHALOGRAM REPORT DATE OF SERVICE: 08/20/2019. PREAMBLE: This is an 83-year-old male with a brain mass. Patient is having episodes of difficulty speaking. Rule out seizure activity. EEG FINDINGS: Routine 21 channel awake digital EEG recording was accomplished utilizing the 10-20 international system with bipolar and referential montages. The background consists of well-developed, well-regulated, moderate voltage activity in mixed alpha and some beta frequency rhythm, mainly seen in the left hemispheric region. There is near constant focal slowing in dysrhythmic, moderate amplitude theta and delta range involving the right hemispheric region. No definitive epileptiform activity was seen. Photic driving response was seen with some flash frequencies. Different stages of sleep were not seen. EKG rhythm leads revealed no obvious arrhythmia. IMPRESSION: This is an abnormal EEG due to near constant focal slowing involving the right hemispheric region. This is suggestive of focal cortical neuronal dysfunction, suggestive of underlying structural abnormality. No definitive epileptiform activity was seen. MMODL / IJN: [id number] /
--- NOTE | 2019-08-21 16:13 | P.PN ---
Subjective Progress Note Date: 08/21/19 Patient states he is feeling better. Denies headache denies any new complaints. Objective - Vital Signs Vital signs: Vital Signs Temp 98.0 F 08/21/19 04:00 Pulse 80 08/21/19 12:00 Resp 17 08/21/19 12:00 BP 118/69 08/21/19 12:00 Pulse Ox 93 L 08/21/19 12:00 Intake & Output 08/20/19 08/21/19 08/21/19 18:59 06:59 18:59 Intake Total 780 240 Balance 780 240 Weight 81.647 kg 83.7 kg Intake: Intake, IV Titration 540 Amount Sodium Chloride 0.9% 1, 140 000 ml @ 20 mls/hr IV . Q24H STEPHEN Rx#:[id number] Sodium Chloride 0.9% 1, 400 000 ml @ 999 mls/hr IV . Q1H1M ONE Rx#:[id number] Oral 240 240 Other: # Voids 1 1 - Exam Patient is alert and awake in no distress. Mental status, speech and language functions are normal. Cranial nerves are significant for normal visual field. She has mild left facial asymmetry. On muscle strength testing patient has left pronator drift. The strength however is very minimally decreased in the left hip flexion as compared to the right. Strength in the upper activities looks normal. Sensations are equal. - Labs CBC & Chem 7: 08/21/19 05:40 08/21/19 05:40 Labs: Abnormal Lab Results - Last 24 Hours (Table) 08/20/19 08/21/19 08/21/19 Range/Units 20:40 05:12 05:40 Glucose 169 H (74-99) mg/dL POC Glucose (mg/dL) 185 H 180 H (75-99) mg/dL 08/21/19 Range/Units 11:54 Glucose (74-99) mg/dL POC Glucose (mg/dL) 163 H (75-99) mg/dL Assessment and Plan Assessment: * Large extra-axial mass, right parietal region, most likely meningioma. * Possible focal seizures. Plan: * MRI of the brain with and without contrast revealed large enhancing mass measuring 6.8 x 5 x 5.9 cm which appears to be likely extra-axial resulting in compression of the adjacent cerebral cortex and subfalcine herniation with midline shift from right to left measuring approximately 6 mm. Degree of u ncal herniation or brainstem compression not excluded. Given the presence of dural tail and most likely etiology is an extra axial mass such as a large meningioma. * Patient's EEG revealed near continuous focal slowing involving the right hemispheric region suggestive of underlying structural abnormality. No definitive epileptiform activity was seen during this study. * Patient will be started on Keppra 500 mg twice a day for probable focal seizures. * Patient's tumor is most likely benign, probably a meningioma. I would recommend an urgent neurosurgical consultation to discuss the risks and benefits of the surgery. He could also be a candidate of gamma knife surgery as well. Then he can make informed decisions if he wants to pursue surgery/gamma knife or just continue with conservative treatment and comfort care. * Patient informed of [place] state law of no driving, operating dangerous machinery, climbing ladders or unsupervised swimming. * Discussed with patient and his in detail.
[2019-08-21 17:13] LABS: Glucose,Whole Blood 177 mg/dL (75-99)
--- NOTE | 2019-08-21 18:12 | P.PN ---
Subjective Discussed treatment of patient with and patient. Patient states he did not want any invasive treatment. Had discussion about informed consent with conversation to neurosurgeon regarding brain mass. Recommended transfer for outpatient visit to on neurosurgeon regarding this. States they will of consider transfer. Or outpatient follow-up Objective - Vital Signs Vital signs: Vital Signs Temp 98.0 F 08/21/19 04:00 Pulse 84 08/21/19 16:00 Resp 18 08/21/19 16:00 BP 139/69 08/21/19 16:00 Pulse Ox 94 L 08/21/19 16:00 Intake & Output 08/20/19 08/21/19 08/21/19 18:59 06:59 18:59 Intake Total 780 360 Balance 780 360 Weight 81.647 kg 83.7 kg Intake: Intake, IV Titration 540 Amount Sodium Chloride 0.9% 1, 140 000 ml @ 20 mls/hr IV . Q24H STEPHEN Rx#:[id number] Sodium Chloride 0.9% 1, 400 000 ml @ 999 mls/hr IV . Q1H1M ONE Rx#:[id number] Oral 240 360 Other: # Voids 1 1 - Constitutional General appearance: Present: mild distress - EENT EENT Comment(s): Facial droop to the left Eyes: Present: PERRLA ENT: Present: hard of hearing Ears: bilateral: normal - Neck Neck: Present: normal ROM - Respiratory Respiratory: bilateral: CTA - Cardiovascular Rhythm: regular - Gastrointestinal General gastrointestinal: Present: normal bowel sounds, soft - Integumentary Integumentary: Present: normal - Neurologic Neurologic Comment(s): Facial drooping to left - Musculoskeletal Musculoskeletal Comment(s): Left lower extremity weakness Musculoskeletal: Present: left sided weakness - Psychiatric Psychiatric: Present: A&O x's 3 - Labs CBC & Chem 7: 08/21/19 05:40 08/21/19 05:40 Labs: Abnormal Lab Results - Last 24 Hours (Table) 08/20/19 08/21/19 08/21/19 Range/Units 20:40 05:12 05:40 Glucose 169 H (74-99) mg/dL POC Glucose (mg/dL) 185 H 180 H (75-99) mg/dL 08/21/19 08/21/19 Range/Units 11:54 16:55 Glucose (74-99) mg/dL POC Glucose (mg/dL) 163 H 177 H (75-99) mg/dL - Imaging and Cardiology CT Scan - head: report reviewed MRI - head: report reviewed Assessment and Plan Plan: Assessment Large right brain mass possible malignancy with midline shift Weakness to right leg facial droop Hypo-magnesium Generalized weakness and gait dysfunction 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
[2019-08-21 20:49] LABS: Glucose,Whole Blood 186 mg/dL (75-99)
[2019-08-21] MEDS: levETIRAcetam 500 MG TAB PO SCH (20:56)
[2019-08-21] MEDS: SODIUM CHLORIDE 0.9% 1,000 ML IV SCH (22:27)
[2019-08-22 06:09] LABS: Basophils % (A) 0 %; Eosinophils % (A) 0 %; HCT 37.3 % (39.0-53.0); HGB 12.7 gm/dL (13.0-17.5); Lymphocytes # (A) 1.6 k/uL (1.0-4.8); Lymphocytes % (A) 11 %; MCH 31.4 pg (25.0-35.0); MCHC 34.2 g/dL (31.0-37.0); Mean Platelet Volume 8.2; Monocytes # (A) 0.6 k/uL (0-1.0); Monocytes % (A) 4 %; Neutrophils % (A) 83 %; Platelet Count 158 k/uL (150-450); RBC 4.05 m/uL (4.30-5.90); RDW 14.1 % (11.5-15.5); WBC 14.5 k/uL (3.8-10.6)
[2019-08-22 06:22] LABS: Calcium 8.9 mg/dL (8.4-10.2); Potassium 4.1 mmol/L (3.5-5.1)
[2019-08-22 06:23] LABS: Glucose,Whole Blood 148 mg/dL (75-99)
[2019-08-22] MEDS: CALCIUM CARBONATE 500 MG CHEWABLE PO SCH ×3 (09:19→22:00)
[2019-08-22] MEDS: levETIRAcetam 500 MG TAB PO SCH ×2 (09:22→21:34)
[2019-08-22] MEDS: ASPIRIN 325 MG TAB PO SCH (09:22)
[2019-08-22] MEDS: CHOLECALCIFEROL 1,000 UNIT TAB PO SCH (09:23)
[2019-08-22] MEDS: ATORVASTATIN 10 MG TAB PO SCH (09:23)
[2019-08-22] MEDS: ATENOLOL 50 MG TAB PO SCH (09:23)
[2019-08-22] MEDS: HYDROCHLOROTHIAZIDE 25 MG TAB PO SCH (09:23)
[2019-08-22] MEDS: MULTIVITAMINS, THERA 1 EACH TAB PO SCH (09:23)
[2019-08-22] MEDS: ALLOPURINOL 300 MG TAB PO SCH (09:23)
[2019-08-22] MEDS: ALLOPURINOL 100 MG TAB PO SCH (09:23)
[2019-08-22] MEDS: METOPROLOL TARTRATE 50 MG TAB PO SCH ×2 (09:37→21:32)
[2019-08-22] MEDS ORDERED: DEXAMETHASONE SOD PHOSPHATE 10 MG/ML 1 ML VIAL IV STA (11:17)
--- NOTE | 2019-08-22 11:31 | P.DS ---
Providers Date of admission: 08/20/19 11:16 Expected date of discharge: 08/22/19 Attending physician: Izaiah Puentes Consults: 08/20/19 11:16 Consult Physician Urgent Consulting Provider: Bal Torres Consult Reason/Comments: CVA Do you want consulting provider notified?: Already Contacted Primary care physician: Izaiah Puentes [place] [facility] Course: 83-year-old male was admitted and found to have large right brain mass 6.8 x 5 x 5.9 cm with 6 mm shift. Family initially declined transfer. Family and patient and agreed to transfer at this time medication was made with [facility] surgeon Dr. Desouza. Arrangements are being made for transfer patient is able to ambulate but noted left facial drooping needs ambulate with walker has problems with incontinence. Patient states she's unable to care for the patient anymore will need placement in extended care facility Assessment Large right brain mass 6.8 x 5 x 5.9 cm with 6 mm shift Right-sided weakness with facial droop Hypo-magnesium corrected Generalized weakness gait dysfunction and lives with walker History of CVA/TIAs Diabetes type 2 with peripheral neuropathy Patient is hard of hearing History of hypertension Hyperlipidemia Degenerative joint disease Plan Transfer to [facility] to Dr. Desouza's service Patient Condition at Discharge: Serious Plan - Discharge Summary Discharge Rx Participant: No New Discharge Prescriptions: No Action Saw [place] 500 mg PO BID Vitamin B Complex 1 cap PO QAM [place]-3 Fatty Acids/Fish Oil [Fish Oil 1,000 mg Softgel] 1 cap PO TID Cholecalciferol [Vitamin D3 (25 Mcg = 1000 Iu)] 1,000 unit PO QAM Aspirin 325 mg PO QAM Calcium Carbonate [Calcium] 1,200 mg PO TID LORazepam [Ativan] 0.5 mg PO QAM PRN PRN Reason: Anxiety Hydrochlorothiazide 25 mg PO QAM Atorvastatin [Lipitor] 10 mg PO QAM Atenolol 100 mg PO QAM Allopurinol [Zyloprim] 100 mg PO QAM Sulindac [Clinor[place]] 200 mg PO BID Allopurinol [Zyloprim] 300 mg PO QAM Potassium 99 mg PO DAILY Ascorbic Acid [Vitamin C] 1,000 mg PO DAILY Multivitamins, Thera [Multivitamin (formulary)] 1 tab PO DAILY Garlic 1,000 mg PO BID Urinozinc Prostate 1 cap PO BID Metoprolol Tartrate [Lopressor] 100 mg PO BID Discharge Medication List Allopurinol [Zyloprim] 100 mg PO QAM 08/21/16 [History] Allopurinol [Zyloprim] 300 mg PO QAM 08/21/16 [History] Aspirin 325 mg PO QAM 08/21/16 [History] Atenolol 100 mg PO QAM 08/21/16 [History] Atorvastatin [Lipitor] 10 mg PO QAM 08/21/16 [History] Calcium Carbonate [Calcium] 1,200 mg PO TID 08/21/16 [History] Cholecalciferol [Vitamin D3 (25 Mcg = 1000 Iu)] 1,000 unit PO QAM 08/21/16 [History] Hydrochlorothiazide 25 mg PO QAM 08/21/16 [History] LORazepam [Ativan] 0.5 mg PO QAM PRN 08/21/16 [History] [place]-3 Fatty Acids/Fish Oil [Fish Oil 1,000 mg Softgel] 1 cap PO TID 08/21/16 [History] Saw [place] 500 mg PO BID 08/21/16 [History] Sulindac [Clinoril] 200 mg PO BID 08/21/16 [History] Vitamin B Complex 1 cap PO QAM 08/21/16 [History] Ascorbic Acid [Vitamin C] 1,000 mg PO DAILY 08/22/16 [History] Garlic 1,000 mg PO BID 08/22/16 [History] Multivitamins, Thera [Multivitamin (formulary)] 1 tab PO DAILY 08/22/16 [History] Potassium 99 mg PO DAILY 08/22/16 [History] Metoprolol Tartrate [Lopressor] 100 mg PO BID 08/20/19 [History] Urinozinc Prostate 1 cap PO BID 08/20/19 [History] Follow up Appointment(s)/Referral(s): Izaiah Puentes MD [Primary Care Provider] - 1-2 days Discharge Disposition: OTHER INSTITUTION NOT DEFINED
[2019-08-22 12:38] LABS: Glucose,Whole Blood 144 mg/dL (75-99)
[2019-08-22] MEDS: DEXAMETHASONE SOD PHOSPHATE 4 MG/ML 1 ML VIAL IV SCH ×2 (17:13→23:40)
[2019-08-22] MEDS: INSULIN ASPART (NovoLOG) 100 UNIT/ML VIAL SQ SCH ×2 (17:45→21:34)
[2019-08-22 17:54] LABS: Glucose,Whole Blood 188 mg/dL (75-99)
[2019-08-22 20:49] LABS: Glucose,Whole Blood 189 mg/dL (75-99)
[2019-08-23] VITALS: RESP 16
[2019-08-23 00:05] VITALS: BP 106/70; PULSE 55; TEMP 97.9
--- NOTE | 2019-08-23 10:37 | P.PN ---
Subjective Progress Note Date: 08/22/19 Patient states he is feeling better. Denies headache denies any new complaints. No further seizures or spells of difficulty speaking. Patient has been accepted to [facility] for neurosurgery, bed not available. Objective - Vital Signs Vital signs: Vital Signs Temp 97.5 F L 08/22/19 15:42 Pulse 55 L 08/22/19 15:42 Resp 14 08/22/19 15:42 BP 113/62 08/22/19 15:42 Pulse Ox 94 L 08/22/19 15:42 Intake & Output 08/21/19 08/22/19 08/22/19 18:59 06:59 18:59 Intake Total 720 640 240 Balance 720 640 240 Weight 84.1 kg Intake: IV 20 Invasive Line 1 20 Intake, IV Titration 140 Amount Sodium Chloride 0.9% 1, 140 000 ml @ 20 mls/hr IV . Q24H STEPHEN Rx#:[id number] Oral 720 480 240 Other: Voiding Method Toilet # Voids 1 1 1 # Bowel Movements 1 - Exam Patient is alert and awake in no distress. Mental status, speech and language functions are normal. Cranial nerves are significant for normal visual field. Patient has mild left facial asymmetry. On muscle strength testing patient has left pronator drift, improved as compared to yesterday. The strength however is very minimally decreased in the left hip flexion as compared to the right. Strength in the upper activities looks normal. Sensations are equal. - Labs CBC & Chem 7: 08/22/19 05:37 08/22/19 05:37 Labs: Abnormal Lab Results - Last 24 Hours (Table) 08/21/19 08/22/19 08/22/19 Range/Units 20:48 05:37 05:37 WBC 14.5 H (3.8-10.6) k/uL RBC 4.05 L (4.30-5.90) m/uL Hgb 12.7 L (13.0-17.5) gm/dL Hct 37.3 L (39.0-53.0) % Neutrophils # 12.0 H (1.3-7.7) k/uL Sodium 136 L (137-145) mmol/L BUN 26 H (9-20) mg/dL Glucose 128 H (74-99) mg/dL POC Glucose (mg/dL) 186 H (75-99) mg/dL 08/22/19 08/22/19 08/22/19 Range/Units 06:21 12:25 17:38 WBC (3.8-10.6) k/uL RBC (4.30-5.90) m/uL Hgb (13.0-17.5) gm/dL Hct (39.0-53.0) % Neutrophils # (1.3-7.7) k/uL Sodium (137-145) mmol/L BUN (9-20) mg/dL Glucose (74-99) mg/dL POC Glucose (mg/dL) 148 H 144 H 188 H (75-99) mg/dL Assessment and Plan Assessment: * Large extra-axial mass, right parietal region, most likely meningioma. * Possible focal seizures. Plan: * MRI of the brain with and without contrast revealed large enhancing mass measuring 6.8 x 5 x 5.9 cm which appears to be likely extra-axial resulting in compression of the adjacent cerebral cortex and subfalcine herniation with midline shift from right to left measuring approximately 6 mm. Degree of uncal herniation or brainstem compression not excluded. Given the presence of dural tail and most likely etiology is an extra axial mass such as a large meningioma. * Patient has agreed to be evaluated by neurosurgery. Patient has been accepted by a neurosurgeon at [facility] and is awaiting transfer. * Patient's EEG revealed near continuous focal slowing involving the right hemispheric region suggestive of underlying structural abnormality. No definitive epileptiform activity was seen during this study. * Continue Keppra 500 mg twice a day for probable focal seizures. * Possible transfer to [facility] today.
== END 2019-08-23 03:47 | disposition short-term general hospital (02) | DRG 54 ==
LOC: EC 09:06 → 3SCARD 11:16
PROVIDERS: ADMIT Family Medicine; ATTEND Family Medicine
DX: D32.0 Benign neoplasm of cerebral meninges (principal); G93.6 Cerebral edema; G93.5 Compression of brain; E11.42 Type 2 diabetes mellitus with diabetic polyneuropathy; R56.9 Unspecified convulsions; Z66 Do not resuscitate; R29.810 Facial weakness; E83.42 Hypomagnesemia; I44.0 Atrioventricular block, first degree; R32 Unspecified urinary incontinence; I10 Essential (primary) hypertension; M19.041 Primary osteoarthritis, right hand; M19.042 Primary osteoarthritis, left hand; E78.5 Hyperlipidemia, unspecified; M10.9 Gout, unspecified; R15.9 Full incontinence of feces; R26.9 Unspecified abnormalities of gait and mobility; H91.90 Unspecified hearing loss, unspecified ear; R97.20 Elevated prostate specific antigen [PSA]; Z79.82 Long term (current) use of aspirin; Z79.899 Other long term (current) drug therapy; Z86.73 Personal history of transient ischemic attack (TIA), and cerebral infarction without residual deficits; Z87.01 Personal history of pneumonia (recurrent); Z87.442 Personal history of urinary calculi; Z97.4 Presence of external hearing-aid; Z98.890 Other specified postprocedural states; Z87.448 Personal history of other diseases of urinary system; Z98.42 Cataract extraction status, left eye; Z98.41 Cataract extraction status, right eye; Z91.041 Radiographic dye allergy status; W18.2XXA Fall in (into) shower or empty bathtub, initial encounter; Y93.E1 Activity, personal bathing and showering; Z82.5 Family history of asthma and other chronic lower respiratory diseases; Z83.3 Family history of diabetes mellitus
CPT/HCPCS: 36415; 70450; 70553; 71046; 80048; 80053; 80061; 83735; 84484; 85025; 85610; 85730; 93005; 95816; 96361; 96365; 96366; 96375; 99291